=== PATIENT | female | born 1990 | race Two or more races ===

== ENCOUNTER 2017-03-02 18:14 | Emergency (ER) | payer BC ==
--- NOTE | 2017-03-02 19:52 | ER Document Report ---
ED Medical Screen (RME) - General Chief Complaint: Abdominal Pain Stated Complaint: LOWER ABDOMINAL PAIN Mode of Arrival: Wheelchair Information source: Patient Notes: 26-year-old female presents with sudden left lower quadrant abdominal pain that started tonight hours ago. Patient notes she has had 2 similar episodes in the past for which she has been evaluated in no specific results were found. Denies any fevers or chills admits nausea I have greeted and performed a rapid initial assessment of this patient. A comprehensive ED assessment and evaluation of the patient, analysis of test results and completion of the medical decision making process will be conducted by additional ED providers. PHYSICAL EXAMINATION: GENERAL: Well-appearing, well-nourished and in no acute distress. HEAD: Atraumatic, normocephalic. EYES: Pupils equal round extraocular movements intact, conjunctiva are normal. ENT: Nares patent NECK: Normal range of motion LUNGS: No respiratory distress Musculoskeletal: Normal range of motion, patient is tender in the left lower quadrant NEUROLOGICAL: Normal speech, normal gait. PSYCH: Normal mood, normal affect. SKIN: Warm, Dry, normal turgor, no rashes or lesions noted. TRAVEL OUTSIDE OF THE [place] IN LAST 30 DAYS: No - Related Data Allergies/Adverse Reactions: bee stings Allergy (Uncoded 03/02/17 19:32) Past Medical History Renal/ Medical History: Denies: Hx Peritoneal Dialysis Physical Exam - Vital signs Vitals: Temp Pulse Resp BP Pulse Ox 98.0 F 87 20 142/115 H 100 03/02/17 18:18 03/02/17 18:18 03/02/17 18:18 03/02/17 18:18 03/02/17 18:18 Course - Vital Signs Vital signs: Temp Pulse Resp BP Pulse Ox 98.0 F 87 20 142/115 H 100 03/02/17 18:18 03/02/17 18:18 03/02/17 18:18 03/02/17 18:18 03/02/17 18:18
[2017-03-02] MEDS ORDERED: KETOROLAC TROMETHAMINE 60 MG/2 ML SDV IM ONE (19:57)
[2017-03-02 20:57] LABS: ABSOLUTE BASOPHILS # (AUTO) 0.1 10^3/uL (0.0-0.2); ABSOLUTE EOSINOPHILS # (AUTO) 0.1 10^3/uL (0.0-0.6); ABSOLUTE LYMPHOCYTES (AUTO) 2.5 10^3/uL (0.5-4.7); ABSOLUTE MONOCYTES (AUTO) 0.7 10^3/uL (0.1-1.4); ABSOLUTE NEUT (AUTO) 8.6 10^3/uL (1.7-8.2); BASOPHILS % (AUTO) 0.5 % (0-2); EOSINOPHILS % (AUTO) 1.1 % (0-6); HEMATOCRIT 46.2 % (36.0-47.0); HEMOGLOBIN 15.3 g/dL (12.0-15.5); HGB HCT DIFFERENCE -0.3; LYMPHOCYTES % (AUTO) 20.8 % (13-45); MEAN CORPUSCULAR HEMOGLOBIN 29.9 pg (27.0-33.4); MEAN CORPUSCULAR HGB CONC 33.2 g/dL (32.0-36.0); MEAN CORPUSCULAR VOLUME 90 fl (80-97); MONOCYTES % (AUTO) 6.1 % (3-13); RED BLOOD COUNT 5.13 10^6/uL (3.72-5.28); RED CELL DISTRIBUTION WIDTH 12.9 % (11.5-14.0); SEGMENTED NEUTROPHILS % (AUTO) 71.5 % (42-78); WHITE BLOOD COUNT 12.1 10^3/uL (4.0-10.5)
[2017-03-02 21:16] LABS: ALANINE AMINOTRANSFERASE 25 U/L (9-52); ALBUMIN 5.1 g/dL (3.5-5.0); ALKALINE PHOSPHATASE 48 U/L (38-126); ANION GAP 16 (5-19); ASPARTATE AMINO TRANSFERASE 19 U/L (14-36); BILIRUBIN,DIRECT 0.4 mg/dL (0.0-0.4); BILIRUBIN,TOTAL 0.8 mg/dL (0.2-1.3); BLOOD UREA NITROGEN 15 mg/dL (7-20); CALCIUM 10.1 mg/dL (8.4-10.2); CARBON DIOXIDE 23 mmol/L (22-30); CHLORIDE 104 mmol/L (98-107); CREATININE RESULT 0.69 mg/dL (0.52-1.25); GLUCOSE 82 mg/dL (75-110); LIPASE 54.3 U/L (23-300); POTASSIUM 4.1 mmol/L (3.6-5.0); SODIUM 142.5 mmol/L (137-145); TOTAL PROTEIN 8.7 g/dL (6.3-8.2)
[2017-03-02 21:23] LABS: APPEARANCE,URINE CLOUDY; BILIRUBIN,URINE NEGATIVE (NEGATIVE); GLUCOSE, URINE NEGATIVE (NEGATIVE); KETONES,URINE NEGATIVE (NEGATIVE); LEUKOCYTE ESTERASE,URINE TRACE (NEGATIVE); NITRITE,URINE NEGATIVE (NEGATIVE); PROTEIN,URINE NEGATIVE (NEGATIVE); URINE SPECIFIC GRAVITY 1.023; UROBILINOGEN,URINE NEGATIVE mg/dL (<2.0)
--- NOTE | 2017-03-02 22:07 | ER Document Report ---
ED GI/ - General Chief Complaint: Abdominal Pain Stated Complaint: LOWER ABDOMINAL PAIN Time seen by provider: 22:05 Mode of Arrival: Wheelchair Information source: Patient TRAVEL OUTSIDE OF THE [place] IN LAST 30 DAYS: No - HPI Patient complains to provider of: Abdominal pain, Pelvic pain Onset: This afternoon Timing/Duration: Sudden Quality of pain: Sharp, Stabbing Severity at maximum: Severe Severity in ED: Almost gone Location: LLQ, Pelvis Vaginal bleeding (Compared to normal period): None Associated symptoms: None Exacerbated by: Denies Relieved by: Denies Similar symptoms previously: No Recently seen / treated by doctor: Yes - approximately one year ago, no diagnosis made Notes: 03/02/17 22:05 Patient is a 26-year-old female who presents to the emergency room complaining of sharp stabbing left lower quadrant/left pelvis pain that started suddenly around 4:30 PM today, she denies any nausea, vomiting or diarrhea, no dysuria or hematuria, no fever or chills, she reports a history of similar symptoms approximately one year ago, she sought medical care but was not given an official diagnosis for her pain, patient reports that her pain is almost nearly resolved now that she received a Toradol injection - Related Data Allergies/Adverse Reactions: bee stings Allergy (Uncoded 03/02/17 19:32) Past Medical History - General Information source: Patient - Social History Smoking Status: Current Some Day Smoker Family History: Reviewed & Not Pertinent Patient has suicidal ideation: No Patient has homicidal ideation: No Renal/ Medical History: Denies: Hx Peritoneal Dialysis Review of Systems - Review of Systems Constitutional: No symptoms reported EENT: No symptoms reported Cardiovascular: No symptoms reported Respiratory: No symptoms reported Gastrointestinal: See HPI Genitourinary: No symptoms reported Female Genitourinary: See HPI Musculoskeletal: No symptoms reported Skin: No symptoms reported Hematologic/Lymphatic: No symptoms reported Neurological/Psychological: No symptoms reported -: Yes All other systems reviewed and negative Physical Exam - Vital signs Vitals: Temp Pulse Resp BP Pulse Ox 98.0 F 87 20 142/115 H 100 03/02/17 18:18 03/02/17 18:18 03/02/17 18:18 03/02/17 18:18 03/02/17 18:18 Interpretation: Hypertensive - General General appearance: Appears well, Alert - HEENT Head: Normocephalic, Atraumatic Eyes: Normal Pupils: PERRL - Respiratory Respiratory status: No respiratory distress Chest status: Nontender Breath sounds: Normal Chest palpation: Normal - Cardiovascular Rhythm: Regular Heart sounds: Normal auscultation Murmur: No - Abdominal Inspection: Normal Distension: No distension Bowel sounds: Normal Tenderness: Tender - Left lower quadrant/left pelvis Organomegaly: No organomegaly - Back Back: Normal, Nontender - Extremities General upper extremity: Normal inspection, Nontender, Normal color, Normal ROM , Normal temperature General lower extremity: Normal inspection, Nontender, Normal color, Normal ROM , Normal temperature, Normal weight bearing. No: Fermin's sign - Neurological Neuro grossly intact: Yes Cognition: Normal Orientation: AAOx4 [place] Coma Scale Eye Opening: Spontaneous [place] Coma Scale Verbal: Oriented [place] Coma Scale Motor: Obeys Commands [place] Coma Scale Total: 15 Speech: Normal Motor strength normal: LUE, RUE, LLE, RLE Sensory: Normal - Psychological Associated symptoms: Normal affect, Normal mood - Skin Skin Temperature: Warm Skin Moisture: Dry Skin Color: Normal Course - Re-evaluation Re-evalutation: 03/02/17 22:38 Patient resting comfortably, continues to deny any complaints at present time, lab and imaging findings were discussed with her at bedside, symptoms are consistent with likely kidney stone, transvaginal ultrasound does not show any abnormalities, I discussed the possibility of obtaining a CT scan with patient today, however she reports that she is feeling much better and would like to go home, therefore she will be treated for a urinary tract infection and likely kidney stone, advised to follow-up with a primary care provider in 2-3 days, or return if symptoms worsen, patient acknowledges understanding and agreement with this plan - Vital Signs Vital signs: Temp Pulse Resp BP Pulse Ox 98.0 F 87 20 142/115 H 100 03/02/17 18:18 03/02/17 18:18 03/02/17 18:18 03/02/17 18:18 03/02/17 18:18 - Laboratory Result Diagrams: 03/02/17 20:11 03/02/17 20:11 Laboratory results interpreted by me: 03/02/17 03/02/17 03/02/17 20:11 20:11 20:11 WBC 12.1 H Absolute Neutrophils 8.6 H Total Protein 8.7 H Albumin 5.1 H Urine Blood SMALL H Ur Leukocyte Esterase TRACE H - Diagnostic Test Radiology reviewed: Image reviewed, Reports reviewed Discharge - Discharge Clinical Impression: Left flank pain Urinary tract infection Qualifiers: Urinary tract infection type: site unspecified Hematuria presence: without hematuria Qualified Code(s): N39.0 - Urinary tract infection, site not specified Condition: Stable Disposition: HOME, SELF-CARE Instructions: Antinausea Medication ([facility]), Urinary Tract Infection ([facility]), Oral Narcotic Medication ([facility]), Kidney Stone ([facility]) Additional Instructions: Follow up with your primary care provider in one to 2 days. Return to the emergency room immediately if symptoms worsen or any additional concerns. Prescriptions: Cephalexin Monohydrate [Keflex 500 mg Capsule] 500 mg PO BID #20 capsule Ondansetron [Zofran Odt 4 mg Tablet] 1 - 2 tab PO Q4H #10 tab.rapdis Tramadol HCl/Acetaminophen [Ultracet 37.5 mg/325 mg Tablet] 1 each PO Q6 #20 tablet Forms: Return to Work
[2017-03-02] MEDS ORDERED: HYDROCODONE/ACETAMINOPHEN 5-325 MG 6 TAB/DSPK PO PRN (22:38)
[2017-03-02] MEDS ORDERED: CEPHALEXIN 500 MG CAPSULE PO ONE (22:38)
[2017-03-02] MEDS ORDERED: ONDANSETRON ODT 4 MG TAB (6 TAB/DSPK) PO PRN (22:38)
[2017-03-02 22:59] VITALS: BP 103/67
== END 2017-03-02 22:50 | disposition home or self-care (01) ==
LOC: ER 18:14
DX: N39.0 Urinary tract infection, site not specified (principal); R10.9 Unspecified abdominal pain; R10.30 Lower abdominal pain, unspecified; R10.2 Pelvic and perineal pain; F17.200 Nicotine dependence, unspecified, uncomplicated
CPT/HCPCS: 99284; 36415; 83690; 84703; 85025; 80053; 81001; 76830; 93976; J1885

== ENCOUNTER 2017-03-28 12:13 | Emergency (ER) | payer BC, MEDICAID ==
--- NOTE | 2017-03-28 13:24 | ER Document Report ---
ED Medical Screen (RME) - General TRAVEL OUTSIDE OF THE [place] IN LAST 30 DAYS: No <AUSTYN CASTREJON - Last Filed: 03/28/17 13:27> <IVANA PIERCE - Last Filed: 03/28/17 19:00> - General Chief Complaint: Pelvic Pain Stated Complaint: ABDOMINAL PAIN, BROWN DISCHARGE Time Seen by Provider: 03/28/17 13:20 Notes: Patient says she fainted Saturday as she was entering a store. Her insurance sales assistant caught her from falling to the ground and so she sustained no injuries from the faint. Not sure why this occurred. Patient had not been ill prior to that. Saturday, she noted runny nose. Patient is approximately 6 weeks . G4, P1, A2. Yesterday, she noted leaking fluid vaginally. Says the fluid is increased today and is brown in color and she is passing some chunks of material. She is having cramping comparable to a menstrual cycle. Patient was here about 3 weeks ago and says she had an ultrasound but was not told if she was or what the findings were from her visit. Denies UTI symptoms. Denies any fever. I have reviewed this patient's previous visit here of March 02. She had a negative test and a negative pelvic ultrasound. (AUSTYN CASTREJON) - Related Data Allergies/Adverse Reactions: Penicillins Allergy (Verified 03/28/17 18:43) shellfish derived Allergy (Verified 03/28/17 18:43) bee stings Allergy (Uncoded 03/28/17 18:43) Past Medical History Renal/ Medical History: Denies: Hx Peritoneal Dialysis <AUSTYN CASTREJON - Last Filed: 03/28/17 13:27> - General Information source: Patient - Social History Cigarette use (# per day): No Chew tobacco use (# tins/day): No Frequency of alcohol use: None Drug Abuse: None Lives with: Family <IVANA PIERCE - Last Filed: 03/28/17 19:00> Review of Systems - Review of Systems Constitutional: Weakness, Other - Syncope <IVANA PIERCE - Last Filed: 03/28/17 19:00> Physical Exam - Vital signs Interpretation: Normal - General General appearance: Appears well, Alert - HEENT Head: Normocephalic, Atraumatic Eyes: Normal Pupils: PERRL - Respiratory Respiratory status: No respiratory distress Chest status: Nontender Breath sounds: Normal Chest palpation: Normal - Cardiovascular Rhythm: Regular Heart sounds: Normal auscultation Murmur: No - Abdominal Inspection: Normal Distension: No distension Bowel sounds: Normal Tenderness: Nontender Organomegaly: No organomegaly - Back Back: Normal, Nontender - Extremities General upper extremity: Normal inspection, Nontender, Normal color, Normal ROM , Normal temperature General lower extremity: Normal inspection, Nontender, Normal color, Normal ROM , Normal temperature, Normal weight bearing. No: Fermin's sign - Neurological Neuro grossly intact: Yes Cognition: Normal Orientation: AAOx4 [place] Coma Scale Eye Opening: Spontaneous [place] Coma Scale Verbal: Oriented [place] Coma Scale Motor: Obeys Commands [place] Coma Scale Total: 15 Speech: Normal Motor strength normal: LUE, RUE, LLE, RLE Sensory: Normal - Psychological Associated symptoms: Normal affect, Normal mood - Skin Skin Temperature: Warm Skin Moisture: Dry Skin Color: Normal <IVANA PIERCE - Last Filed: 03/28/17 19:00> - Vital signs Vitals: Temp Pulse Resp BP Pulse Ox 97.6 F 84 16 129/82 H 100 03/28/17 12:18 03/28/17 12:18 03/28/17 12:18 03/28/17 12:18 03/28/17 12:18 Course <AUSTYN CASTREJON - Last Filed: 03/28/17 13:27> - Laboratory Result Diagrams: 03/28/17 13:33 <IVANA PIERCE - Last Filed: 03/28/17 19:00> - Re-evaluation Re-evalutation: 03/28/17 18:43 03/28/17 18:45 This is a 26-year-old female who states that she is Rh-. In workup was ordered in the pit process however it was not completed up until this time. Ultrasound did not show an intrauterine 6 weeks and 5 days with a heart tone of 128 there is a subchorionic bleed radiology report for further information in that regard. Reviewed GC was negative negative for pyuria or UTI time the patient is pending the for potential RhoGam. 03/28/17 18:46 (IVANA PIERCE) - Vital Signs Vital signs: Temp Pulse Resp BP Pulse Ox 99.4 F 75 20 196/86 H 95 03/28/17 18:44 03/28/17 18:44 03/28/17 18:44 03/28/17 18:44 03/28/17 18:44 - Laboratory Laboratory results interpreted by me: 03/28/17 03/28/17 03/28/17 13:33 13:33 13:33 WBC 11.1 H Beta HCG, Quant 69907.00 H Urine Blood MODERATE H Doctor's Discharge <AUSTYN CASTREJON - Last Filed: 03/28/17 13:27> <IVANA PIERCE - Last Filed: 03/28/17 19:00> - Discharge Condition: Good Disposition: HOME, SELF-CARE Instructions: Threatened Miscarriage ([facility]) Additional Instructions: Threatened Miscarriage You have been evaluated for a possible miscarriage. At this time, there is no indication that a miscarriage will occur. Most women with your symptoms will go on to have a perfectly normal baby. However, careful observation will be necessary. A miscarriage occurs when the fetus is abnormal. There is no medicine or treatment for it. You should rest in bed until the symptoms have resolved. Do not douche or have sex for at least a week, or until OK'd by the doctor. Call the doctor or return for re-examination if there is an increase in bleeding or cramping, or passage of tissue Follow-up with private doctor in 1 to 2 days for final radiology readings please return to the emergency room for any change worsening condition. Follow up with private M.D. for all other routine health care needs.
[2017-03-28 13:55] LABS: ABSOLUTE EOSINOPHILS # (AUTO) 0.1 10^3/uL (0.0-0.6); ABSOLUTE LYMPHOCYTES (AUTO) 2.2 10^3/uL (0.5-4.7); ABSOLUTE NEUT (AUTO) 7.9 10^3/uL (1.7-8.2); BASOPHILS % (AUTO) 0.3 % (0-2); EOSINOPHILS % (AUTO) 0.8 % (0-6); HEMATOCRIT 41.4 % (36.0-47.0); HEMOGLOBIN 13.9 g/dL (12.0-15.5); HGB HCT DIFFERENCE 0.3; LYMPHOCYTES % (AUTO) 19.5 % (13-45); MEAN CORPUSCULAR HEMOGLOBIN 30.2 pg (27.0-33.4); MEAN CORPUSCULAR HGB CONC 33.6 g/dL (32.0-36.0); MEAN CORPUSCULAR VOLUME 90 fl (80-97); MONOCYTES % (AUTO) 8.7 % (3-13); RED CELL DISTRIBUTION WIDTH 13.1 % (11.5-14.0); SEGMENTED NEUTROPHILS % (AUTO) 70.7 % (42-78); WHITE BLOOD COUNT 11.1 10^3/uL (4.0-10.5)
[2017-03-28 14:30] LABS: APPEARANCE,URINE CLEAR; BILIRUBIN,URINE NEGATIVE (NEGATIVE); GLUCOSE, URINE NEGATIVE (NEGATIVE); KETONES,URINE NEGATIVE (NEGATIVE); LEUKOCYTE ESTERASE,URINE NEGATIVE (NEGATIVE); NITRITE,URINE NEGATIVE (NEGATIVE); PROTEIN,URINE NEGATIVE (NEGATIVE); URINE SPECIFIC GRAVITY 1.005; UROBILINOGEN,URINE NEGATIVE mg/dL (<2.0)
--- NOTE | 2017-03-28 17:14 | RADIOLOGY REPORT (SQ) ---
EXAM DESCRIPTION: U/S OB TRANSVAGINAL W/DOPPLER COMPLETED DATE/TIME: 03/28/2017 4:48 pm REASON FOR STUDY: with leaking fluid COMPARISON: None. TECHNIQUE: Transvaginal static and realtime grayscale images acquired of the pelvis. Additional sunni cted spectral and color Doppler images recorded. All images stored on PACs. bHCG: Not available. LIMITATIONS: None. FINDINGS: FETUS: Living intrauterine . EGA: 6 weeks 5 days ISABEL: 11/16/2017 FHR: 128 beats per minute. SUBCHORIONIC BLEED: There is a small subchorionic bleed measuring 10 x 5 x 5 mm. SIZE OF BLEED: 10 x 5 x 5 mm. UTERUS: 10.5 x 7.7 x 5.7 cm. No masses. CERVICAL Closed. RIGHT ADNEXA: Normal ovary with normal vascular flow. Measures 23 x 24 x 14 mm. No adnexal free fluid. No adnexal masses. LEFT ADNEXA: Normal ovary with normal vascular flow. Measures 35 x 30 x 18 mm. No adnexal free fluid. No adnexal masses. FREE FLUID: Minimal OTHER: No other significant finding. IMPRESSION: There is live intrauterine gestation 6 weeks 5 days with estimated date of delivery of . Trimester of : First - 0 to 13 weeks. TECHNICAL DOCUMENTATION: JOB ID: [id number] [employer]- All Rights Reserved
[2017-03-28 18:23] LABS: CHLAM PCR NOT DETECTED (NOT DETECT)
[2017-03-28 20:22] VITALS: BP 104/62
== END 2017-03-28 20:21 | disposition home or self-care (01) ==
LOC: ER 12:13
DX: O20.0 Threatened abortion (principal); O26.891 Other specified pregnancy related conditions, first trimester; R10.2 Pelvic and perineal pain; R55 Syncope and collapse; R09.89 Other specified symptoms and signs involving the circulatory and respiratory systems; N89.8 Other specified noninflammatory disorders of vagina; Z3A.01 Less than 8 weeks gestation of pregnancy; Z88.0 Allergy status to penicillin; Z91.013 Allergy to seafood; Z91.030 Bee allergy status
CPT/HCPCS: 36415; 76817; 81001; 84702; 85025; 86900; 86901; 87491; 87591; 93976; 99284

== ENCOUNTER → 2017-04-29 | Outpatient (CLI) | payer MEDICAID ==
--- NOTE | 2017-04-29 17:34 | RADIOLOGY REPORT (SQ) ---
EXAM DESCRIPTION: U/S [id number] TRNABD 1GES W/ODOP COMPLETED DATE/TIME: 04/29/2017 4:24 pm REASON FOR STUDY: ENCOUNTER FOR SUPERVISON OF OTHER NORMAL , FIRST TRIMESTER Z34.[address] FOR SUPRVSN OF NORMAL , FIRST TRIM COMPARISON: None. TECHNIQUE: Transabdominal static and realtime grayscale images acquired of the pelvis. Additional se lected spectral and color Doppler images recorded. All images stored on PACs. bHCG: Not available, last menses 02/10/2017 LIMITATIONS: None. FINDINGS: FETUS: Living intrauterine . EGA: 12 weeks 0 days ISABEL: 11/11/2017 FHR: 173 beats per minute. SUBCHORIONIC BLEED: No SIZE OF BLEED: Not applicable. UTERUS: No masses. No anomalies. Uterus is 11.5 x 9.7 x 8 cm in size CERVICAL LENGTH: 3.3 cm Closed. RIGHT ADNEXA: Not visualized LEFT ADNEXA: Normal ovary with normal vascular flow. Left ovary 2.8 x 1.8 x 1.9 cm in size No adnexal free fluid. No adnexal masses. FREE FLUID: None. OTHER: No other significant finding. IMPRESSION: LIVING INTRAUTERINE . EGA 12 weeks 0 days Trimester of : First - 0 to 13 weeks. TECHNICAL DOCUMENTATION: JOB ID: [id number] [employer]- All Rights Reserved
== END ==
LOC: RAD 15:36
PROVIDERS: ATTEND Nurse Practitioner Women's Health
DX: Z34.81 Encounter for supervision of other normal pregnancy, first trimester (principal)
CPT/HCPCS: 76801

== ENCOUNTER 2017-09-02 15:04 | Outpatient (CLI) | payer MEDICAID ==
[2017-09-02 16:04] LABS: URINE BARBITURATES SCREEN NEGATIVE; URINE METHADONE SCREEN NEGATIVE; URINE OPIATES LOW NEGATIVE; URINE PHENCYCLIDINE SCREEN NEGATIVE
[2017-09-02 16:49] LABS: APPEARANCE,URINE SLIGHTLY-CLOUDY; BILIRUBIN,URINE NEGATIVE (NEGATIVE); GLUCOSE, URINE NEGATIVE (NEGATIVE); KETONES,URINE NEGATIVE (NEGATIVE); LEUKOCYTE ESTERASE,URINE MODERATE (NEGATIVE); NITRITE,URINE NEGATIVE (NEGATIVE); PROTEIN,URINE NEGATIVE (NEGATIVE); URINE SPECIFIC GRAVITY 1.011
[2017-09-02] MEDS ORDERED: LIDOCAINE 1% INJ-PF (10 MG/ML) 30 ML SDV INJ ONE (17:00)
[2017-09-02] MEDS ORDERED: CEFTRIAXONE INJ 1000 MG VIAL ONE (17:07)
[2017-09-02] MEDS ORDERED: LIDOCAINE 1% INJ-PF (10 MG/ML) 30 ML SDV ONE (17:08)
[2017-09-02] MEDS ORDERED: CEFTRIAXONE INJ 1000 MG VIAL IM ONE (17:30)
[2017-09-02] MEDS ORDERED: LIDOCAINE HCL 1% INJ (FOR 1 GM VIAL) INJ ONE (17:30)
== END 2017-09-02 17:25 | disposition home or self-care (01) ==
LOC: LC 15:04
PROVIDERS: ATTEND Obstetrics & Gynecology
PROC: 4A1HXCZ Monitoring of Products of Conception, Cardiac Rate, External Approach (ICD-10-PCS; principal; 2017-09-02)
DX: O23.43 Unspecified infection of urinary tract in pregnancy, third trimester (principal); Z3A.29 29 weeks gestation of pregnancy
CPT/HCPCS: 87086; 87088; 81001; 87186; 80307; 59899; J3490; J0696

== ENCOUNTER 2017-10-27 05:28 | Outpatient (CLI) | payer MEDICAID ==
[2017-10-27 06:17] LABS: APPEARANCE,URINE SLIGHTLY-CLOUDY; BILIRUBIN,URINE NEGATIVE (NEGATIVE); GLUCOSE, URINE NEGATIVE (NEGATIVE); KETONES,URINE NEGATIVE (NEGATIVE); LEUKOCYTE ESTERASE,URINE NEGATIVE (NEGATIVE); NITRITE,URINE NEGATIVE (NEGATIVE); PROTEIN,URINE NEGATIVE (NEGATIVE); URINE SPECIFIC GRAVITY 1.005; UROBILINOGEN,URINE NEGATIVE mg/dL (<2.0)
[2017-10-27 06:36] LABS: URINE BARBITURATES SCREEN NEGATIVE; URINE METHADONE SCREEN NEGATIVE; URINE OPIATES LOW NEGATIVE; URINE PHENCYCLIDINE SCREEN NEGATIVE
--- NOTE | 2017-10-27 08:24 | Non Stress Test Report ---
Non Stress Test Datetime Report Generated by CPN: 10/27/2017 08:23 DEMOGRAPHIC EGA NST: 37.1 INDICATION Indication for Study: Ordered by Provider MONITORING Monitor Explained: Monitor Explained; Test Explained; Patient Verbalized Understanding Time on Monitor: 10/27/2017 05:40 Time off Monitor: 10/27/2017 08:21 NST Duration: 161 NST INTERVENTIONS NST Interventions: PO Hydration; Reposition Patient Physician Notified NST: Dr. Corbin BABY A: [id number] BABY A Movement : Present Contraction Frequency : 1-6 FHR Baseline : 135 Accelerations : 15X15 Decelerations : Variable Variability : Moderate 6-25bpm NST Review: Meets Criteria for Reactive NST NST Review and Verified By : Shannon Jeong RN NST Results: Reactive NST COMMENTS NST Comments: Reactive tracing after variable. Pt repostioned from back to side. NST REPORT Report Trigger: Send Report
== END 2017-10-27 08:27 | disposition home or self-care (01) ==
LOC: LC 05:28
PROVIDERS: ATTEND Obstetrics & Gynecology
PROC: 4A1HXCZ Monitoring of Products of Conception, Cardiac Rate, External Approach (ICD-10-PCS; principal; 2017-10-27)
DX: O47.1 False labor at or after 37 completed weeks of gestation (principal); Z3A.37 37 weeks gestation of pregnancy
CPT/HCPCS: 59025; 80307; 81005

== ENCOUNTER 2017-10-31 21:04 | Outpatient (CLI) | payer MEDICAID ==
[2017-10-31 22:30] LABS: AMORPHOUS SEDIMENT,URINE TRACE /HPF; APPEARANCE,URINE CLOUDY; BILIRUBIN,URINE NEGATIVE (NEGATIVE); COLOR,URINE YELLOW; GLUCOSE, URINE NEGATIVE (NEGATIVE); KETONES,URINE NEGATIVE (NEGATIVE); LEUKOCYTE ESTERASE,URINE NEGATIVE (NEGATIVE); NITRITE,URINE NEGATIVE (NEGATIVE); PROTEIN,URINE NEGATIVE (NEGATIVE); URINE SPECIFIC GRAVITY 1.014
[2017-10-31 22:39] LABS: URINE AMPHETAMINES SCREEN NEGATIVE; URINE BARBITURATES SCREEN NEGATIVE; URINE BENZODIAZEPINES SCREEN NEGATIVE; URINE COCAINE SCREEN NEGATIVE; URINE MARIJUANA (THC) SCREEN NEGATIVE; URINE METHADONE SCREEN NEGATIVE; URINE PHENCYCLIDINE SCREEN NEGATIVE
== END 2017-10-31 22:45 | disposition home or self-care (01) ==
LOC: LC 21:04
PROVIDERS: ATTEND Obstetrics & Gynecology
PROC: 4A1HXCZ Monitoring of Products of Conception, Cardiac Rate, External Approach (ICD-10-PCS; principal; 2017-10-31)
DX: Z34.93 Encounter for supervision of normal pregnancy, unspecified, third trimester (principal)
CPT/HCPCS: 59025; 80307; 81001

== ENCOUNTER 2017-11-18 22:52 | Inpatient (IN) | payer MEDICAID ==
--- NOTE | 2017-11-18 22:58 | Non Stress Test Report ---
Non Stress Test Datetime Report Generated by CPN: 11/18/2017 22:57 DEMOGRAPHIC Test Number: 2 EGA NST: 37.5 INDICATION Indication for Study: Other Indication for Study (NST) Other: ctx-labor check MONITORING Monitor Explained: Monitor Explained; Test Explained; Patient Verbalized Understanding Time on Monitor: 10/31/2017 21:20 Time off Monitor: 10/31/2017 22:15 NST Duration: 55 NST INTERVENTIONS NST Interventions: PO Hydration; Reposition Patient Physician Notified NST: Dr. Corbin BABY A: [id number] BABY A Movement : Present Contraction Frequency : X2 FHR Baseline : 135 Accelerations : 15X15 Decelerations : None Variability : Moderate 6-25bpm NST Review: Meets Criteria for Reactive NST NST Review and Verified By : CECILIA Gresham Results: Reactive NST REPORT Report Trigger: Send Report
[2017-11-18 23:40] LABS: BILIRUBIN,URINE NEGATIVE (NEGATIVE); GLUCOSE, URINE NEGATIVE (NEGATIVE); KETONES,URINE NEGATIVE (NEGATIVE); LEUKOCYTE ESTERASE,URINE LARGE (NEGATIVE); NITRITE,URINE NEGATIVE (NEGATIVE); PROTEIN,URINE NEGATIVE (NEGATIVE)
[2017-11-18 23:42] LABS: APPEARANCE,URINE CLEAR; COLOR,URINE LIGHT YELLOW
[2017-11-18] MEDS ORDERED: RINGERS SOLUTION,LACTATED 1,000 ML IV PRN (23:54)
[2017-11-18] MEDS ORDERED: RINGERS SOLUTION,LACTATED 1,000 ML IV ONE (23:54)
[2017-11-18 23:57] LABS: URINE AMPHETAMINES SCREEN NEGATIVE; URINE BARBITURATES SCREEN NEGATIVE; URINE BENZODIAZEPINES SCREEN NEGATIVE; URINE COCAINE SCREEN NEGATIVE; URINE MARIJUANA (THC) SCREEN NEGATIVE; URINE METHADONE SCREEN NEGATIVE; URINE PHENCYCLIDINE SCREEN NEGATIVE
[2017-11-19] MEDS ORDERED: PROMETHAZINE HCL INJ 25 MG/1 ML VIAL ONE (00:08)
[2017-11-19] MEDS ORDERED: NALBUPHINE HCL INJ 10 MG/1 ML AMPULE ONE (00:08)
[2017-11-19] MEDS ORDERED: DILTIAZEM HCL INJ 25 MG/5 ML VIAL IV ONE (00:28)
[2017-11-19 00:31] LABS: ABSOLUTE EOSINOPHILS # (AUTO) 0.1 10^3/uL (0.0-0.6); ABSOLUTE LYMPHOCYTES (AUTO) 1.6 10^3/uL (0.5-4.7); ABSOLUTE MONOCYTES (AUTO) 1.5 10^3/uL (0.1-1.4); BASOPHILS % (AUTO) 0.2 % (0-2); EOSINOPHILS % (AUTO) 0.4 % (0-6); HEMATOCRIT 31.6 % (36.0-47.0); HEMOGLOBIN 10.3 g/dL (12.0-15.5); LYMPHOCYTES % (AUTO) 10.6 % (13-45); MEAN CORPUSCULAR HEMOGLOBIN 24.8 pg (27.0-33.4); MEAN CORPUSCULAR HGB CONC 32.4 g/dL (32.0-36.0); MEAN CORPUSCULAR VOLUME 77 fl (80-97); MONOCYTES % (AUTO) 9.6 % (3-13); PLATELET COUNT 239 10^3/uL (150-450); RED BLOOD COUNT 4.13 10^6/uL (3.72-5.28); RED CELL DISTRIBUTION WIDTH 16.5 % (11.5-14.0); SEGMENTED NEUTROPHILS % (AUTO) 79.2 % (42-78); TOTAL CELLS COUNTED % (AUTO) 100 %; WHITE BLOOD COUNT 15.2 10^3/uL (4.0-10.5)
[2017-11-19] MEDS ORDERED: ADENOSINE INJ/PF 6 MG/2 ML SDV IV ONE ×2 (00:40→00:47)
[2017-11-19 00:41] LABS: FIBRINOGEN 531 mg/dL (209-497); INTERNATIONAL RATION (INR) 0.96; PARTIAL THROMBOPLASTIN TIME 29.9 SEC (23.5-35.8); PROTHROMBIN TIME 13.5 SEC (11.4-15.4)
[2017-11-19] MEDS ORDERED: RINGERS SOLUTION,LACTATED 1,000 ML IV ONE (00:55)
[2017-11-19] MEDS ORDERED: METOPROLOL TARTRATE PF/INJ 5 MG/5 ML SDV IV ONE ×2 (00:55→00:56)
[2017-11-19] MEDS ORDERED: MISOPROSTOL 0.2 MG TABLET ONE (01:07)
[2017-11-19] MEDS ORDERED: LIDOCAINE 1% INJ-PF (10 MG/ML) 30 ML SDV ONE (01:07)
[2017-11-19] MEDS ORDERED: OXYTOCIN/NORMAL SALINE 20 UNIT/1,000 ML RTUINJ ONE (01:07)
[2017-11-19] MEDS ORDERED: DILTIAZEM HCL/D5W 125 MG/125 ML RTUINJ IV PRN (01:08)
[2017-11-19] MEDS ORDERED: ADENOSINE INJ 60 MG/20 ML VIAL IV ONE (01:33)
[2017-11-19 01:48] LABS: ANION GAP 11 (5-19); BLOOD UREA NITROGEN 7 mg/dL (7-20); CARBON DIOXIDE 21 mmol/L (22-30); CHLORIDE 108 mmol/L (98-107); GLUCOSE 92 mg/dL (75-110); MAGNESIUM 1.6 mg/dL (1.6-2.3); POTASSIUM 3.7 mmol/L (3.6-5.0); SODIUM 140.2 mmol/L (137-145)
[2017-11-19] MEDS ORDERED: MAGNESIUM SULFATE/D5W 1 GM/100 ML RTUPB IV ONE (02:11)
--- NOTE | 2017-11-19 02:23 | PDOC CONSULTATION ---
Consultation Consult Date: 11/19/17 Attending physician:: QIANA PECK Consult reason:: Tachycardia History of Present Illness Admission Date/PCP: 11/18/17 23:52 CHARLIE BATEMAN MD History of Present Illness: GREGORIO JORDAN is a 27 year old female with no past medical history of palpitations or heart problems who presents to the hospital with syncope, palpitations, and labor pains. Patient is found to have tachycardia. I was called by the OB on-call at approximately 0022 and asked what to do for a heart rate of 220. At this time he presented to the floor. Patient denies any chest pain but admits to palpitations and feelings of dizziness. Patient is having intermittent contractions. EKG was obtained and patient was found to be a narrow complex tachycardia. Past Medical History Medical History: None Past Surgical History Past Surgical History: Reports: None Social History Smoking Status: Never Smoker Frequency of Alcohol Use: None Hx Recreational Drug Use: No Hx Prescription Drug Abuse: No - Advance Directive Resuscitation Status: Full Code Family History Family History: Hypertension Parental Family History Reviewed: Yes Children Family History Reviewed: NA Sibling(s) Family History Reviewed.: No Medication/Allergy Home Medications: Vit/Iron Fum/Folic AC [ Tablet] 1 tab PO DAILY 09/02/17 Allergies/Adverse Reactions: bee stings Allergy (Severe, Uncoded 10/27/17 05:37) Review of Systems Constitutional: ABSENT: chills, fever(s), headache(s), weight gain, weight loss Eyes: ABSENT: visual disturbances Ears: ABSENT: hearing changes Cardiovascular: PRESENT: palpitations Respiratory: ABSENT: cough, hemoptysis Gastrointestinal: PRESENT: abdominal pain Genitourinary: ABSENT: dysuria, hematuria Musculoskeletal: ABSENT: joint swelling Integumentary: ABSENT: rash, wounds Neurological: PRESENT: syncope Psychiatric: ABSENT: anxiety, depression, homidical ideation, suicidal ideation Endocrine: ABSENT: cold intolerance, heat intolerance, polydipsia, polyuria Hematologic/Lymphatic: ABSENT: easy bleeding, easy bruising Physical Exam Vital Signs: Intake & Output 11/17/17 11/18/17 11/19/17 06:59 06:59 06:59 Weight 73 kg General appearance: PRESENT: mild distress, well-developed, well-nourished Head exam: PRESENT: atraumatic, normocephalic Eye exam: PRESENT: conjunctiva pink, EOMI, PERRLA. ABSENT: scleral icterus Ear exam: PRESENT: normal external ear exam Mouth exam: PRESENT: moist, tongue midline Neck exam: ABSENT: JVD, lymphadenopathy, thyromegaly, tracheal deviation Respiratory exam: PRESENT: clear to auscultation alex, tachypnea, unlabored. ABSENT: accessory muscle use, rales, rhonchi, wheezes Cardiovascular exam: PRESENT: RRR, +S1, +S2, tachycardia. ABSENT: diastolic murmur, gallop, rubs, systolic murmur Pulses: PRESENT: normal carotid pulses, normal dorsalis pedis pul Vascular exam: PRESENT: normal capillary refill GI/Abdominal exam: PRESENT: soft, other - Gravid. ABSENT: guarding, mass, organolmegaly, rebound, tenderness Rectal exam: PRESENT: deferred Extremities exam: PRESENT: full ROM. ABSENT: calf tenderness, clubbing, pedal edema Neurological exam: PRESENT: alert, awake, oriented to person, oriented to place , oriented to time, oriented to situation, CN II-XII grossly intact. ABSENT: motor sensory deficit Psychiatric exam: PRESENT: appropriate affect, normal mood. ABSENT: homicidal ideation, suicidal ideation Skin exam: PRESENT: dry, intact, warm. ABSENT: cyanosis, rash Results Laboratory Results: 11/19/17 00:14 11/18/17 11/19/17 23:05 00:14 WBC 15.2 H RBC 4.13 Hgb 10.3 L Hct 31.6 L MCV 77 L MCH 24.8 L MCHC 32.4 RDW 16.5 H Plt Count 239 Seg Neutrophils % 79.2 H Lymphocytes % 10.6 L Monocytes % 9.6 Eosinophils % 0.4 Basophils % 0.2 Absolute Neutrophils 12.0 H Absolute Lymphocytes 1.6 Absolute Monocytes 1.5 H Absolute Eosinophils 0.1 Absolute Basophils 0.0 Urine Color LIGHT YELLOW Urine Appearance CLEAR Urine pH 7.0 Ur Specific [place] 1.010 Urine Protein NEGATIVE Urine Glucose (UA) NEGATIVE Urine Ketones NEGATIVE Urine Blood MODERATE H Urine Nitrite NEGATIVE Ur Leukocyte Esterase LARGE H 11/19/17 00:14 Troponin I < 0.012 Assessment & Plan - Diagnosis (1) AVNRT (AV nando re-entry tachycardia) Is this a current diagnosis for this admission?: Yes Plan: 15 EKG reveals SVT 0017 Attempt made carotid massage 001 Ice application to face 0020 Discussed with Cardiology 0030 Cardizem 10mg IV maternal HR from 220 to 180, FHR 140 0043 LR bolus 0052 Adenosine 6mg IV x1- maternal HR from 197 to 143, FHR 145 0053 Second IV started 0058 Metoprolol IV 5mg maternal HR from 143 to 113, FHR 140 Cardizem ggt started at 2.5mg /hr. ICU nurse with telemeetry monitor to titrate. OB and cardiology in agreement. Per cardiology recommendations, patient is to take cardizedm 30mg po q8 after delivery. Patient has been advised NOT to breastfeed at this time due to the salt cutter of these medications. Cardiology and OB in agreement with current care. Defer further management to cardiology. Check electrolytes and replete if needed. (2) Qualifiers: Weeks of gestation: 40 weeks Qualified Code(s): Z3A.40 - 40 weeks gestation of Is this a current diagnosis for this admission?: Yes Plan: Defer all expectant management to the [facility] team. - Time Disposition: Total time spent with patient including patient education, physical examination , discussion with consultants, and formulation of plan was 85 minutes.
[2017-11-19] MEDS ORDERED: FENTANYL/BUPIVACAINE/NS/PF 200 MCG/100 ML RTUINJ EPI ONE (03:30)
[2017-11-19] MEDS ORDERED: EPHEDRINE SULFATE INJ 50 MG/1 ML AMPULE ONE (03:30)
[2017-11-19] MEDS ORDERED: BUPIVACAINE HCL 0.25 % INJ/PF (2.5 MG/1 ML) 30 ML VIAL ONE (03:30)
[2017-11-19] MEDS ORDERED: DILTIAZEM HCL 30 MG TABLET PO SCH (06:00)
[2017-11-19] MEDS ORDERED: DIBUCAINE 1% OINTMENT 28 GM TP PRN (06:52)
[2017-11-19] MEDS ORDERED: BENZOCAINE/MENTHOL AEROSOL SPRAY 56 ML TOP PRN (06:52)
[2017-11-19] MEDS ORDERED: ACETAMINOPHEN WITH CODEINE #3 TABLET PO PRN (06:52)
[2017-11-19] MEDS ORDERED: DIPH/PERTUSS(ACELL)/TETANUS VAC/PF 0.5 ML SYR (>=10YO) IM PRN (06:52)
[2017-11-19] MEDS ORDERED: ZOLPIDEM TARTRATE 5 MG TABLET PO PRN (06:52)
[2017-11-19] MEDS ORDERED: MEASLES,MUMPS&RUBELLA VACC/PF 0.5 ML VIAL SUBCUT PRN (06:52)
[2017-11-19] MEDS ORDERED: OXYTOCIN/NORMAL SALINE 20 UNIT/1,000 ML RTUINJ IV PRN (06:52)
[2017-11-19] MEDS ORDERED: DILTIAZEM HCL 30 MG TABLET PO ONE (08:00)
--- NOTE | 2017-11-19 08:20 | Admission Physical ---
Datetime Report Generated by CPN: 11/19/2017 08:20 CURRENT ADMISSION Chief Complaint: Uterine Contractions; Other Chief Complaint Other: palpatations Indication for Induction: Other Indication for Induction: Term, Intrauterine ; Induction of Labor; Medical Complication Indication for Induction- Other: maternal tachycardia Admit Plan: Admit to Unit; Initiate Labor Induction Protocol ALLERGIES Medication Allergies: No Latex: No Latex Allergies Food Allergies: none Environmental Allergies: BEE STINGS-ANAPHYLACTIC OBSTETRICAL HISTORY EDC: 11/16/2017 00:00 : 4 Para: 1 Term: 1 : 0 SAB: 2 IAB: 0 Ectopic: 0 Livin Cesareans: 0 VBACs: 0 Multiple Births: 0 Gestational Diabetes: No Rh Sensitization: No Incompetent Cervix: No SERGEY: No Infertility: No ART Treatment: No Uterine Anomaly: No IUGR: No Hx Previous C/S: No Macrosomia: No Hx Loss/Stillborn: No PIH: No Hx : No Placenta Previa/Abruption: No Depression/PP Depression: No PTL/PROM: No Post Hemorrhage: No Current Procedures: Ultrasound; NST Obstetrical History Comments: G1: SAB 2006 G2: Male 2008 G3: SAB twins 2012 G4: Current SEE RECORDS Alcohol: No Marijuana : No Cocaine: No Other Illicit Drugs: No Cigarettes: Former Smoker. 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, CIN1, HPV, mild dysplasia, colp performed, frequent UTI's INFECTIOUS HISTORY Gonorrhea: No Genital Herpes: No Chlamydia: No Tuberculosis: No Syphilis: No Hepatitis: No HIV/AIDS Exposure: No Rash or Viral Illness: No HPV: No PHYSICAL EXAM General: Normal HEENT: Normal Neurologic: Normal Thyroid: Normal Heart: Abnormal Lungs: Normal Breast: Normal Back: Normal Abdomen: Normal Genitourinary Exam: Normal Extremities: Normal DTRs: Normal Pelvic Type: Adequate Vital Signs: Reviewed Details Vital Signs: maternal tachycardia in 190s-200s VAGINAL EXAM Dilatation: 3 Effacement: 50 Station: -1 MEMBRANES Pooling: Negative Membranes: Intact FETUS A EGA: 40.3 Monitoring: External US FHR- Baseline: 150 Variability: Moderate 6-25bpm Accelerations: 15X15 Decelerations: None FHR Category: Category I Estimated Weight (gm): 3500 Presentation: Vertex Admit Comment: hospitalist Dr. Shaffer consulted due to maternal tachycardia in light of normal BP and PO2 and no other symptoms. Dr. Shaffer and Dr. Esposito presented and evaluated patient with diagnosis of re-entry tachycardia that responded to Adenosine and Cardiziem. Will continue with plan for induction in light of patients medical complication. Per hospitalist recs will continue on cardiziem drip while laboring. Metoprolol 5 mg given x [address] Esposito recommends Cardiziem 30 mg TID PO to be initiated after delivery achieved. PLANS FOR LABOR AND DELIVERY Labor and Delivery: None Pain Management: Epidural Feeding Preference: Breast Benefit of Breast Feed Discussed: Yes Circumcision: No INFORMED CONSENT Signature: with User ID: [email or web address]
[2017-11-19 09:05] LABS: ANION GAP 10 (5-19); BLOOD UREA NITROGEN 8 mg/dL (7-20); CALCIUM 8.7 mg/dL (8.4-10.2); CARBON DIOXIDE 19 mmol/L (22-30); CHLORIDE 108 mmol/L (98-107); GLUCOSE 95 mg/dL (75-110); MAGNESIUM 1.6 mg/dL (1.6-2.3); POTASSIUM 3.8 mmol/L (3.6-5.0); SODIUM 136.8 mmol/L (137-145)
--- NOTE | 2017-11-19 09:49 | EKG REPORT ---
SEVERITY:- ABNORMAL ECG - SINUS TACHYCARDIA BORDERLINE RIGHT AXIS DEVIATION BORDERLINE ST DEPRESSION, DIFFUSE LEADS ABNORMAL T, CONSIDER ISCHEMIA, INFERIOR LEADS : Confirmed by: Blank Knight 19-Nov-2017 09:48:39
--- NOTE | 2017-11-19 09:49 | EKG REPORT ---
SEVERITY:- OTHERWISE NORMAL ECG - SINUS TACHYCARDIA : Confirmed by: Blank Knight 19-Nov-2017 09:48:29
--- NOTE | 2017-11-19 09:50 | EKG REPORT ---
SEVERITY:- ABNORMAL ECG - SUPRAVENTRICULAR TACHYCARDIA REPOLARIZATION ABNORMALITY, PROB RATE RELATED : Confirmed by: Blank Knight 19-Nov-2017 09:48:55
[2017-11-19] MEDS ORDERED: (PENDING PHARMACY ID) (Prenatal Vit/Iron Fum/Folic Ac [Prenatal Tablet] 1 TAB) PO SCH (10:00)
[2017-11-19] MEDS ORDERED: PRENATAL VITAMIN W DHA CAPSULE PO SCH (10:00)
[2017-11-19] MEDS: ACETAMINOPHEN WITH CODEINE #3 TABLET PO PRN (11:08)
[2017-11-19] MEDS: DOCUSATE SODIUM 100 MG CAPSULE PO SCH ×2 (11:08→17:24)
[2017-11-19] MEDS: PRENATAL VITAMIN W DHA CAPSULE PO SCH (11:09)
[2017-11-19] MEDS: FERROUS SULFATE 325 MG TABLET PO SCH ×2 (11:09→17:24)
[2017-11-19] MEDS: SENNOSIDES/DOCUSATE 8.6-50 MG 1 EACH TABLET PO SCH (11:09)
--- NOTE | 2017-11-19 11:39 | PDOC PROGRESS REPORT ---
Subjective Progress Note for:: 11/19/17 Subjective:: The patient is seen on morning rounds. She is found sitting upright in bed eating her breakfast. She reports feeling very fatigued this morning after her labor/deliver early this morning. She denies chest pain, palpitations, dyspnea , orthopnea. She denies a current sensation of dizziness, or lightheadedness, nausea or vomiting. She has no new questions or concerns at this time. Reason For Visit: Physical Exam Vital Signs: Temp Pulse Resp BP Pulse Ox 98.3 F 91 19 115/56 L 98 11/19/17 08:30 11/19/17 08:30 11/19/17 10:09 11/19/17 10:09 11/19/17 10:09 Intake & Output 11/18/17 11/19/17 11/20/17 06:59 06:59 06:59 Weight 73 kg 70.1 kg General appearance: PRESENT: no acute distress, well-developed, well-nourished Head exam: PRESENT: atraumatic, normocephalic Eye exam: PRESENT: conjunctiva pink, EOMI, PERRLA. ABSENT: scleral icterus Ear exam: PRESENT: normal external ear exam Mouth exam: PRESENT: moist, tongue midline Neck exam: ABSENT: carotid bruit, JVD, lymphadenopathy, thyromegaly Respiratory exam: PRESENT: clear to auscultation alex, symmetrical, unlabored. ABSENT: rales, rhonchi, wheezes Cardiovascular exam: PRESENT: RRR, +S1, +S2, tachycardia. ABSENT: diastolic murmur, rubs, systolic murmur Pulses: PRESENT: normal dorsalis pedis pul Vascular exam: PRESENT: normal capillary refill GI/Abdominal exam: PRESENT: normal bowel sounds, soft, tenderness - generalized. ABSENT: distended, guarding, mass, organolmegaly, rebound Rectal exam: PRESENT: deferred Extremities exam: PRESENT: full ROM. ABSENT: calf tenderness, clubbing, pedal edema Neurological exam: PRESENT: alert, awake, oriented to person, oriented to place , oriented to time, oriented to situation, CN II-XII grossly intact. ABSENT: motor sensory deficit Psychiatric exam: PRESENT: appropriate affect, normal mood. ABSENT: homicidal ideation, suicidal ideation Skin exam: PRESENT: dry, intact, warm. ABSENT: cyanosis, rash Results Laboratory Results: 11/19/17 00:14 11/19/17 08:36 11/18/17 11/19/17 11/19/17 23:05 00:14 00:14 WBC 15.2 H RBC 4.13 Hgb 10.3 L Hct 31.6 L MCV 77 L MCH 24.8 L MCHC 32.4 RDW 16.5 H Plt Count 239 Seg Neutrophils % 79.2 H Lymphocytes % 10.6 L Monocytes % 9.6 Eosinophils % 0.4 Basophils % 0.2 Absolute Neutrophils 12.0 H Absolute Lymphocytes 1.6 Absolute Monocytes 1.5 H Absolute Eosinophils 0.1 Absolute Basophils 0.0 Sodium Potassium Chloride Carbon Dioxide Anion Gap BUN Creatinine Est GFR ( Amer) Est GFR (Non-Af Amer) Glucose Calcium Magnesium Urine Color LIGHT YELLOW Urine Appearance CLEAR Urine pH 7.0 Ur Specific Two Dot 1.010 Urine Protein NEGATIVE Urine Glucose (UA) NEGATIVE Urine Ketones NEGATIVE Urine Blood MODERATE H Urine Nitrite NEGATIVE Ur Leukocyte Esterase LARGE H Blood Type O POSITIVE Antibody Screen NEGATIVE 11/19/17 11/19/17 00:14 08:36 WBC RBC Hgb Hct MCV MCH MCHC RDW Plt Count Seg Neutrophils % Lymphocytes % Monocytes % Eosinophils % Basophils % Absolute Neutrophils Absolute Lymphocytes Absolute Monocytes Absolute Eosinophils Absolute Basophils Sodium 140.2 136.8 L Potassium 3.7 3.8 Chloride 108 H 108 H Carbon Dioxide 21 L 19 L Anion Gap 11 10 BUN 7 8 Creatinine 0.71 0.54 Est GFR ( Amer) > 60 > 60 Est GFR (Non-Af Amer) > 60 > 60 Glucose 92 95 Calcium 9.0 8.7 Magnesium 1.6 1.6 Urine Color Urine Appearance Urine pH Ur Specific Two Dot Urine Protein Urine Glucose (UA) Urine Ketones Urine Blood Urine Nitrite Ur Leukocyte Esterase Blood Type Antibody Screen 11/19/17 00:14 Troponin I < 0.012 Assessment & Plan - Diagnosis (1) AVNRT (AV nando re-entry tachycardia) Is this a current diagnosis for this admission?: Yes Plan: Resolved following administration of Cardizem, metoprolol, and adenosine. The patient initially had a heart rate in the 220s with an associated syncopal episode. She was briefly placed on a Cardizem drip. Will transition to p.o. diltiazem now that patient is . Appreciate Cardiology's consultation and recommendations. Follow-up chemistry reveals only mild hyponatremia, likely secondary to fluid volume depletion following labor and vaginal delivery last night. We will continue to monitor. (2) Hyponatremia Is this a current diagnosis for this admission?: Yes Plan: mild hyponatremia, likely secondary to fluid volume depletion following labor and vaginal delivery last night. We will continue to monitor. (3) care following vaginal delivery Is this a current diagnosis for this admission?: Yes Plan: Will defer management to the QC ANALYST team. - Time Time Spent with patient: 15-24 minutes Medications reviewed and adjusted accordingly: Yes Anticipated discharge: Home Within: within 48 hours
--- NOTE | 2017-11-19 13:45 | Delivery Summary ---
Del Sum A-C Datetime Report Generated by CPN: 11/19/2017 13:45 DELIVERY PERSONNEL DELIVERY PERSONNEL: [id number] Delivery Doctor:: Desiree Monroy MD Labor and Delivery Nurse:: Jolene Esquivel RNsurveillance specialist Nurse:: Veronica Christensen RN Nursery Nurse:: Suzette Jj RN Adjunct Physical Education Instructor/DINKEY DISPATCHER: Nicolette Semar, MARINE PILOT MATERNAL INFORMATION Delivery Anesthesia: Epidural Medications After Delivery: Pitocin Drip 20 Units/1000ml NSS Estimated Blood Loss (ml): 200 Maternal Complications: Other Other Maternal Complications: maternal tachycardia-on Cardizem drip and received Adenosine. LABOR SUMMARY EDC: 11/16/2017 00:00 No. Babies in Womb: 1 Attempted: No Labor Anesthesia: Epidural LABOR INFORMATION Reason for Induction: Other Reason for Induction- Other: maternal tachycardia Onset of Labor: 11/19/2017 02:37 Complete Dilatation: 11/19/2017 05:26 Oxytocin: Induction Group B Beta Strep: negative Antibiotics # of Doses: 0 Steroids Given: None Reason Steroids Not Administered: Not Applicable MEMBRANES Membranes Rupture Method: Artificial Rupture of Membranes: 11/19/2017 05:41 Length of Rupture (hr): 0.73 Amniotic Fluid Color: Clear Amniotic Fluid Amount: Small Amniotic Fluid Odor: Normal STAGES OF LABOR Stage 1 hr: 2 Stage 1 min: 49 Stage 2 hr: 0 Stage 2 min: 59 Stage 3 hr: 0 Stage 3 min: 3 Total Time in Labor hr: 3 Total Time in Labor min: 51 VAGINAL DELIVERY Episiotomy: None Laceration #1: None Laceration Extension #1: N/A Laceration Repair: Not Applicable Sponge Count Correct: N/A Sharps Count Correct: N/A CSECTION DELIVERY Primary Indication: N/A CSection Incidence: N/A Labor: N/A Elective: N/A CSection Incision: N/A BABY A INFORMATION Delivery Date/Time: 11/19/2017 06:25 Method of Delivery: Vaginal Born in Route : No : N/A Forceps: N/A Vacuum Extraction: N/A Shoulder Dystocia : No PRESENTATION/POSITION BABY A Presentation: Cephalic Cephalic Presentation: Vertex Vertex Position: Right Occipital Anterior Breech Presentation: N/A PLACENTA INFORMATION BABY A Placenta Delivery Time : 11/19/2017 06:28 Placenta Method of Delivery: Spontaneous Placenta Status: Delivered SCORES BABY A Heart Rate 1 min: >100 bpm Resp Effort 1 min: Good Cry Reflex Irritability 1 min: Cough or Sneeze or Pulls Away Muscle Tone 1 min: Active Motion Color 1 min: Blue/Pale Resuscitation Effort 1 min: Tactile Stimulation SCORE 1 MIN: 8 Heart Rate 5 min: >100 bpm Resp Effort 5 min: Good Cry Reflex Irritability 5 min: Cough or Sneeze or Pulls Away Muscle Tone 5 min: Active Motion Color 5 min: Body Secretary, Extremities Blue Resuscitation Effort 5 min: Tactile Stimulation SCORE 5 MIN: 9 INFORMATION BABY A Gestational Age at Delivery: 40.3 Gestational Status: Full Term- 39- 40.6 Weeks Infant Outcome : Liveborn Condition : Stable Sex: Male IDENTIFICATION BABY A Verification Date/Time: 11/19/2017 06:35 ID Band Number: [id number] Mother's Name Verified: Yes RN Verifying : Javier Christensen, RN Additional Verifying Personnel: S Shelby, RN WEIGHT/LENGTH BABY A Infant Birthweight (gm): 3740 Infant Weight (lb): 8 Weight (oz): 4 Infant Length (in): 20.50 Length (cm): 52.07 CORD INFORMATION BABY A No. Cord Vessels: 3 Nuchal Cord : N/A Nuchal Cord- Other: Compound R Hand Cord Blood Taken: Yes-For Eval (Mom's Blood Type - or O+) Suction: Mouth; Nose ASSESSMENT BABY A Skin to Skin: No BABY B INFORMATION : N/A SIGNATURES Signature: with User ID: [email or web address]
[2017-11-19] MEDS: DILTIAZEM HCL 30 MG TABLET PO SCH ×2 (15:11→21:23)
[2017-11-19] MEDS: IBUPROFEN 800 MG TABLET PO SCH ×2 (15:12→21:23)
--- NOTE | 2017-11-19 17:15 | XCELERA REPORT ---
[address] [address] Transthoracic Echocardiogram Report Name: GREGORIO JORDAN Age: 27 yrs Gender: Female : 1990 Patient Status: Inpatient Patient Location: [address] [place] [address] Study Date: 11/19/2017 03:18 PM Height: 65 in Weight: 154 lb BSA: 1.8 m2 Procedure: A two-dimensional transthoracic echocardiogram with color flow and Doppler was performed. Study Quality: Good. Reason For Study: SVT / Murmur History: SVT / Murmur. Ordering Physician: CHERYL FLOOD Performed By: Lora Talley Interpretation Summary The left ventricle is normal in size. There is normal left ventricular wall thickness. LV EF is 65% Left ventricular systolic function is normal. Doppler measurements suggest normal left ventricular diastolic function The left ventricular wall motion is normal. There is no thrombus. There is no ventricular septal defect visualized. The right ventricle is normal in size and function. The right atrium is normal. The left atrial size is normal. The interatrial septum is intact with no evidence for an atrial septal defect. There is no evidence of mitral valve prolapse. There is no vegetation seen on the mitral valve. There is no mitral valve stenosis. There is a trace amount of mitral regurgitation There is no aortic valvular vegetation. There is no aortic valve stenosis There is no LVOT obstruction. No aortic regurgitation is present. There is no tricuspid stenosis. There is a mild amount of tricuspid regurgitation RVSPm is 31 mm of Hg , with RA mean of 5.No significant pulmonary hypertension.RVSP is just above the upper normal limits of 30 mm of Hg. There is no pulmonic valvular stenosis. There is a trace amount of pulmonic regurgitation The aortic root is normal size. There is no pericardial effusion. MMode/2D Measurements & Calculations RVDd: 2.9 cm LVIDd: 4.3 cm FS: 35.4 % Ao root diam: 2.5 cm IVSd: 0.84 cm LVIDs: 2.8 cm EDV(Teich): 82.4 ml LVPWd: 0.89 cmESV(Teich): 28.7 ml Ao root area: 5.0 cm2 EF(Teich): 65.1 % LA dimension: 3.2 cm LVOT diam: 1.9 cm LVOT area: 2.8 cm2 Doppler Measurements & Calculations MV E max monisha: MV P1/2t max monisha: Ao V2 max: LV V1 max P.7 cm/sec 99.2 cm/sec 159.9 cm/sec 5.4 mmHg MV A max monisha: MV P1/2t: 46.1 msec Ao max PG: LV V1 max: 63.2 cm/sec MVA(P1/2t): 4.8 cm2 10.2 mmHg 115.7 cm/sec MV E/A: 1.5 MV dec slope: PILAR(V,D): 2.0 cm2 630.8 cm/sec2 PA V2 max: PI end-d monisha: TR max monisha: 89.8 cm/sec 107.7 cm/sec 251.9 cm/sec PA max PG: TR max P.2 mmHg 25.4 mmHg Left Ventricle The left ventricle is normal in size. There is normal left ventricular wall thickness. LV EF is 65%. Left ventricular systolic function is normal. Doppler measurements suggest normal left ventricular diastolic function. The left ventricular wall motion is normal. There is no thrombus. There is no ventricular septal defect visualized. Right Ventricle The right ventricle is normal in size and function. Atria The right atrium is normal. The left atrial size is normal. The interatrial septum is intact with no evidence for an atrial septal defect. Mitral Valve There is no evidence of mitral valve prolapse. There is no vegetation seen on the mitral valve. There is no mitral valve stenosis. There is a trace amount of mitral regurgitation. Aortic Valve There is no aortic valvular vegetation. There is no aortic valve stenosis. There is no LVOT obstruction. No aortic regurgitation is present. Tricuspid Valve There is no tricuspid stenosis. There is a mild amount of tricuspid regurgitation. RVSPm is 31 mm of Hg , with RA mean of 5.No significant pulmonary hypertension.RVSP is just above the upper normal limits of 30 mm of Hg. Pulmonic Valve There is no pulmonic valvular stenosis. There is a trace amount of pulmonic regurgitation. Great Vessels The aortic root is normal size. Effusions There is no pericardial effusion. : CHERYL FLOOD > Cheryl Flood
--- NOTE | 2017-11-19 20:35 | EKG REPORT ---
SEVERITY:- NORMAL ECG - SINUS RHYTHM : Confirmed by: Blank Knight 19-Nov-2017 20:34:42
--- NOTE | 2017-11-19 22:24 | CONSULTATION REPORT E ---
Consultation Report NAME: GREGORIO JORDAN : 1990 AGE: 27Y DATE: 11/19/2017 ROOM: 425 A TO: KALPESH FLOOD M.D. FROM: Requesting Physician Note, I was with the patient from 12:45 a.m. to 1 a.m. Total of 45 minutes spent. HISTORY OF PRESENT ILLNESS: The patient is a 27-year-old female with full term who came into labor and delivery with complaints of syncope, labor pains, and contractions and also awareness of rapid beating of her heart. 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 The patient had a stable blood pressure. There was no effect with the Cardizem given intravenously. Subsequently the patient was given 6 mg of adenosine and the patient converted to sinus tachycardia. Her heart rate was in the 108 beats per minute and blood pressure 113/51. The patient still had not delivered and the patient was started on Pitocin drip to help her facilitate the labor/delivery quickly. My recommendation was to place the patient on Cardizem 2.5 mg per hour and watch her and once the patient delivers the baby then put her on Cardizem at 30 mg p.o. q.8 hours. The patient denies any chest pain or discomfort. She does have some shortness of breath due to the pain. There is no PND, orthopnea. The patient is able to lie down flat. There is no further syncope after I saw the patient. There is no seizure activity. PAST MEDICAL HISTORY: Negative for any palpitations or cardiac arrhythmia. There is no history of increased caffeine intake. There is no history of prior palpitations or syncope. There is no history of mitral valve prolapse. There is no history of coronary artery disease. There is no history of hypertension or diabetes mellitus or any other major medical illnesses. PAST SURGICAL HISTORY: Positive for D and C in 2013. FAMILY HISTORY: Positive for hypertension. Negative for any cardiac arrhythmia. ALLERGIES: BEE STINGS. MEDICATIONS: As per MAR; The patient did receive Pitocin and also pain medications. The patient is on a Cardizem drip, subsequently the Cardizem once the patient delivers will be changed to oral Cardizem at 30 mg p.o. q.8 hours. Later was for the patient to have an echocardiogram done once the patient's heart rate is below 100. SOCIAL HISTORY: The patient does not smoke. There is no history of EtOH abuse. There is no history of street drug abuse. There is no history of excessive caffeine intake. FAMILY HISTORY: Positive for hypertension. No history of arrhythmias in the family. REVIEW OF SYSTEMS: CONSTITUTIONAL: Denies any fever, chills, or rigors. Complains of generalized fatigue. HEAD: Denies headaches or head injury. EYES: No history of amblyopia or diplopia. No history of amaurosis fugax. EARS: No history of hearing loss. No history of tinnitus. No history of recurrent ear infections. NOSE: No history of hay fever. No history of nosebleeds. No history of nasal polyps. MOUTH: No history of altered taste sensation. No ulcers in the mouth. No bleeding from the gums. THROAT: No odynophagia or dysphagia. No history of recurrent sore throats. SKIN: No pruritus. No skin cancer. No history of psoriasis. NECK: No history of symptoms of c-spine arthritis. No history of swelling in the neck. No goiter. LUNGS: No history of asthma or COPD. No history of wheezing. No history of cough or sputum production. No history of pulmonary embolism. No history of hemoptysis. No history of pleuritic chest pain. No history of sleep apnea. No history of upper or lower respiratory tract infections. CARDIAC: No prior history of cardiac arrhythmia or palpitations. No prior history of syncope. No history of congenital heart disease. No history of mitral valve prolapse. No history for the patient's young to have coronary artery disease. No history of anginal symptoms. No history of congestive heart failure. No history of leg edema. No history of PND, orthopnea. This is the first time the patient has had an SVT. GASTROINTESTINAL: Occasional GERD symptoms due to her . No history of GI bleed. No history of fatty food intolerance. No history of cirrhosis of the liver. MUSCULOSKELETAL: Denies collagen vascular disease or arthritis. RENAL: No history of chronic kidney disease. No history of symptoms of urinary tract infection. No hematuria, pyuria, or dysuria. ENDOCRINE: No history of diabetes mellitus. No history of thyroid disease. No history of polydipsia or polyuria. No history of heat or cold intolerance. METABOLIC: No history of obesity. No history of hyperlipidemia. CENTRAL NERVOUS SYSTEM: No history of TIA or CVA. No history of headaches, migraines, or seizures. No history of gait imbalance. PSYCHIATRIC: No history of anxiety or depression. No history of suicidal or homicidal ideation. VASCULAR: No history of calf or buttock claudication. No history of DVT. HEMATOLOGICAL: No history of bleeding diathesis. No history of clotting disorders. DISPOSITION: The patient is a full code. Her is the surrogate healthcare decision maker. PHYSICAL EXAMINATION: VITAL SIGNS: On examination the patient is afebrile, after the adenosine the patient's heart rate came down to 103, blood pressure came down to 113/75, respirations 21 per minute, O2 saturations are 99% on room air. HEENT: Head is atraumatic, normocephalic. Eyes: Pupils are equal, round and regular, reactive to light and accommodation. Extraocular movements are normal. There is no conjunctival pallor. There is no scleral icterus. Ears: Tympanic membranes are intact, external auditory canals are clear. Nose: There is no deviated nasal septum, there is no inflammation of the nasal mucous membrane. Mouth: Mucous membranes of the are moist, tongue is moist. There are no ulcers. There is no bleeding from the gums. Throat: There is no redness of the oropharynx, there is no exudate. SKIN: There are no skin rashes. There is no petechiae, ecchymosis. There are no skin lesions. NECK: Supple. There is no JVD. There is no lymphadenopathy. There is no goiter. Carotids are equal. There is no bruit. Trachea is central. LUNGS: Clear to auscultation and percussion. There is no chest wall tenderness. HEART: S1 and S2 is heard. There is no S3 gallop. There is no S4 gallop. There is a systolic murmur in the left sternal border and the apex without any radiation. There is no rub. ABDOMEN: Soft, bowel sounds are well heard. There is no hepatosplenomegaly. There are no tender areas or masses. There is a gravid uterus. Note that the patient's fetus is being monitored and it has a good pulse and seems to be healthy and without compromise due to the mother's present condition. EXTREMITIES: Femorals are well felt. There are no femoral bruits. Leg pulses are well felt. There is no pedal edema. There is no cyanosis or clubbing. There is no DVT or cellulitis. There is no calf tenderness. CENTRAL NERVOUS SYSTEM: The patient is conscious, awake, alert and oriented x3, although slightly drowsy with no focal deficits. PSYCHIATRIC: The patient does not appear to be agitated or depressed. Judgment and insight seem to be intact in spite of her labor pains. DIAGNOSTIC STUDIES: The patient's EKG initially showed SVT and subsequently with adenosine converted to sinus tachycardia otherwise within normal limits. 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 The patient's white count is 15,200; hemoglobin is 10.3; hematocrit is 31.6; platelet count is 239,000. The patient's fibrinogen is 531 which is high. PTT is 29.9, INR is 0.96, ProTime is 13.6. The patient's sodium is 140.2, potassium 3.9, chloride 108, CO2 of 21. The patient's BUN is 7, creatinine 0.71, GFR is greater than 60. Glucose is 92, calcium is 9.0, magnesium is 1.6. Her troponin I is less than 0.012. The patient's urine opiate screen, urine methadone screen, urine barbiturate screen, urine phencyclidine screen, urine amphetamine screen, urine benzodiazepine screen, urine cocaine screen, and urine marijuana screen are all negative. The patient's RPR is nonreactive. The patient's urine shows a specific gravity of 1.010, urine protein is negative, urine glucose is negative, urine ketones is negative, urine blood is moderate, urine nitrite is negative, urine bilirubin is negative, urobilinogen is 4, urine leukocyte esterase is large, urine ascorbic acid is negative. IMPRESSION: 1. 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 We will start the patient on a Cardizem drip until the patient delivers and subsequently we will change it to p.o. Cardizem at 30 mg p.o. q.8 hours. In view of the drug crossing the barrier and concentrating the patient's breast milk. The patient has been cautioned not to breastfeed her . Later would recommend getting an echocardiogram and also as an outpatient would get a 30 day event monitor. 2. . The patient at the point of delivering. The patient is in labor. 3. Systolic murmur without radiation but we will get an echocardiogram. RECOMMENDATIONS: Stands as above. ADDENDUM: The patient did have an echocardiogram which was within normal limits with trace mitral regurgitation and mild tricuspid regurgitation with normal right ventricular systolic pressures, no pericardial effusion, no chamber enlargements, and normal left ventricular systolic function and with no wall motion abnormality, no evidence of mitral valve prolapse or any other congenital heart disease. This will be discussed with the patient. Since I went to the patient's room, she was not there. TIME SPENT: Note 45 minutes spent on this patient with more than 50% of the time spent on direct patient care, her medications have been reviewed, and medications adjusted as mentioned earlier. Discussed with the hospitalist, Dr. Shaffer and with Dr. Monroy the OBGYN, and formulated a care of plan for the patient. Note medical decision making is of high complexity. In view of the patient being in labor and having a high heart rate. Note, thankfully the patient's blood pressure was stable and we were able to convert the patient to regular rhythm. As mentioned earlier as an outpatient we will get a 30 day event monitor. DICTATING PHYSICIAN: KALPESH FLOOD M.D. [id number] PHY#: [id number] ID: [id number] JOB#: [id number] ACCT: [id number] cc:KALPESH FLOOD M.D. >
[2017-11-20 05:12] LABS: HEMATOCRIT 30.5 % (36.0-47.0); MEAN CORPUSCULAR HEMOGLOBIN 25.2 pg (27.0-33.4); MEAN CORPUSCULAR HGB CONC 32.7 g/dL (32.0-36.0); MEAN CORPUSCULAR VOLUME 77 fl (80-97); PLATELET COUNT 223 10^3/uL (150-450); RED BLOOD COUNT 3.95 10^6/uL (3.72-5.28); RED CELL DISTRIBUTION WIDTH 16.3 % (11.5-14.0); WHITE BLOOD COUNT 14.4 10^3/uL (4.0-10.5)
[2017-11-20 05:54] LABS: BLOOD UREA NITROGEN 7 mg/dL (7-20); CALCIUM 8.5 mg/dL (8.4-10.2); CHLORIDE 110 mmol/L (98-107); GLUCOSE 70 mg/dL (75-110)
[2017-11-20] MEDS: DILTIAZEM HCL 30 MG TABLET PO SCH (05:54)
[2017-11-20] MEDS: IBUPROFEN 800 MG TABLET PO SCH ×3 (05:54→21:59)
[2017-11-20 06:06] LABS: CARBON DIOXIDE 23 mmol/L (22-30); SODIUM 135.2 mmol/L (137-145)
[2017-11-20 06:13] LABS: ANION GAP 2 (5-19)
[2017-11-20] MEDS: ACETAMINOPHEN WITH CODEINE #3 TABLET PO PRN ×2 (07:23→14:51)
--- NOTE | 2017-11-20 09:04 | PDOC PROGRESS REPORT ---
Subjective Progress Note for:: 11/20/17 Subjective:: pt denies any problems Reason For Visit: Physical Exam - Physical Exam Vital Signs: Temp Pulse Resp BP Pulse Ox 97.7 F 90 16 101/58 L 95 11/20/17 03:20 11/20/17 07:00 11/20/17 03:20 11/20/17 03:20 11/20/17 03:20 Intake & Output 11/19/17 11/20/17 11/21/17 06:59 06:59 06:59 Intake Total 353 Balance 353 Weight 73 kg 70.1 kg - Obstetrical Exam Fundal Height: u/3 - u/4 Tender: No Result Laboratory Results: 11/20/17 04:47 11/20/17 04:47 11/19/17 11/20/17 11/20/17 08:36 04:47 04:47 WBC 14.4 H RBC 3.95 Hgb 10.0 L Hct 30.5 L MCV 77 L MCH 25.2 L MCHC 32.7 RDW 16.3 H Plt Count 223 Sodium 136.8 L 135.2 L Potassium 3.8 4.0 Chloride 108 H 110 H Carbon Dioxide 19 L 23 Anion Gap 10 2 L BUN 8 7 Creatinine 0.54 0.48 L Est GFR ( Amer) > 60 > 60 Est GFR (Non-Af Amer) > 60 > 60 Glucose 95 70 L Calcium 8.7 8.5 Magnesium 1.6 11/19/17 00:14 Troponin I < 0.012 Assessment & Plan - Diagnosis (1) AVNRT (AV nando re-entry tachycardia) Is this a current diagnosis for this admission?: Yes - Plan Summary Plan Summary: routine post care and follow plan of management of cardiology/hospitalist
[2017-11-20] MEDS: PRENATAL VITAMIN W DHA CAPSULE PO SCH (09:51)
[2017-11-20] MEDS: FERROUS SULFATE 325 MG TABLET PO SCH ×2 (09:51→18:25)
[2017-11-20] MEDS: SENNOSIDES/DOCUSATE 8.6-50 MG 1 EACH TABLET PO SCH (09:51)
[2017-11-20] MEDS: DOCUSATE SODIUM 100 MG CAPSULE PO SCH ×2 (09:51→18:25)
--- NOTE | 2017-11-20 10:05 | PDOC PROGRESS REPORT ---
Subjective Progress Note for:: 11/20/17 Subjective:: Patient is feeling well no tachycardia no chest pains no fever or chills Reason For Visit: PSVT Physical Exam Vital Signs: Temp Pulse Resp BP Pulse Ox 97.7 F 90 16 101/58 L 95 11/20/17 03:20 11/20/17 07:00 11/20/17 03:20 11/20/17 03:20 11/20/17 03:20 Intake & Output 11/19/17 11/20/17 11/21/17 00:59 00:59 00:59 Intake Total 3 350 Balance 3 350 Weight 73 kg 70.1 kg General appearance: PRESENT: no acute distress, well-developed, well-nourished Head exam: PRESENT: atraumatic, normocephalic Eye exam: PRESENT: conjunctiva pink, EOMI, PERRLA. ABSENT: scleral icterus Ear exam: PRESENT: normal external ear exam Mouth exam: PRESENT: moist, tongue midline Neck exam: ABSENT: carotid bruit, JVD, lymphadenopathy, thyromegaly Respiratory exam: PRESENT: clear to auscultation alex. ABSENT: rales, rhonchi, wheezes Cardiovascular exam: PRESENT: RRR. ABSENT: diastolic murmur, rubs, systolic murmur Pulses: PRESENT: normal dorsalis pedis pul Vascular exam: PRESENT: normal capillary refill GI/Abdominal exam: PRESENT: normal bowel sounds, soft. ABSENT: distended, guarding, mass, organolmegaly, rebound, tenderness Rectal exam: PRESENT: deferred Extremities exam: PRESENT: full ROM. ABSENT: calf tenderness, clubbing, pedal edema Neurological exam: PRESENT: alert, awake, oriented to person, oriented to place , oriented to time, oriented to situation, CN II-XII grossly intact. ABSENT: motor sensory deficit Psychiatric exam: PRESENT: appropriate affect, normal mood. ABSENT: homicidal ideation, suicidal ideation Skin exam: PRESENT: dry, intact, warm. ABSENT: cyanosis, rash Results Laboratory Results: 11/20/17 04:47 11/20/17 04:47 11/20/17 11/20/17 04:47 04:47 WBC 14.4 H RBC 3.95 Hgb 10.0 L Hct 30.5 L MCV 77 L MCH 25.2 L MCHC 32.7 RDW 16.3 H Plt Count 223 Sodium 135.2 L Potassium 4.0 Chloride 110 H Carbon Dioxide 23 Anion Gap 2 L BUN 7 Creatinine 0.48 L Est GFR ( Amer) > 60 Est GFR (Non-Af Amer) > 60 Glucose 70 L Calcium 8.5 11/19/17 00:14 Troponin I < 0.012 Assessment & Plan - Diagnosis (1) AVNRT (AV nando re-entry tachycardia) Is this a current diagnosis for this admission?: Yes Plan: discussed case with Dr Esposito Cardiology no reccurent tachyarrhythmia Repeat EKG Hold Cardizem monitor patient for 12- 24 hours (2) (normal spontaneous vaginal delivery) Is this a current diagnosis for this admission?: Yes - Time Time Spent with patient: 25-34 minutes - Plan Summary Plan Summary: patient to hold for 48hours after discontinuation of cardizem
[2017-11-20] MEDS: POLYETHYLENE GLYCOL 3350 POWDER 17 GM/1 PACKET PO SCH (14:40)
--- NOTE | 2017-11-20 21:44 | PROGRESS NOTE E ---
Progress Note NAME: GREGORIO JORDAN : 1990 AGE: 27Y DATE: 11/20/2017 ROOM: 425 SUBJECTIVE: Note that the patient has not had any recurrence of SVT. Her heart rate is well-controlled. She does not want to take Cardizem since she wants to breastfeed her child. The patient has no prior history of SVT. This could all be due to the strain of labor and pain causing the patient to go into SVT. She denies any chest pain or discomfort. There is no PND, orthopnea, or leg edema. There is no dizziness, near syncope, or syncope. OBJECTIVE: GENERAL: On examination the patient is well-built and well-nourished in no acute distress. VITAL SIGNS: She is afebrile with a temperature of 97.3 degrees Fahrenheit, pulse is 80 beats per minute, blood pressure 108/74, respirations are 20 per minute, O2 saturations are 100% on room air. HEENT: Head is atraumatic, normocephalic. Eyes: Pupils are equal, round and regular, reactive to light and accommodation. Extraocular movements are normal. There is no conjunctival pallor. There is no scleral icterus. Ears: Tympanic membranes are intact, external auditory canals are clear. Nose: There is no deviated nasal septum, there is inflammation of the nasal mucous membrane. Mouth: Mucous membranes of the mouth are moist, tongue is moist. There are no ulcers, there is no bleeding from the gums. Throat: There is no redness of the oropharynx, there are no exudates. SKIN: There are no skin rashes. There is no skin lesions. There is no petechiae or ecchymosis. NECK: Supple. There is no JVD. There is no lymphadenopathy. There is no goiter. Carotids are equal. There is no bruit. Trachea is central. LUNGS: Clear to auscultation and percussion without any rhonchi, rales, or wheezing. There is no chest wall tenderness. HEART: S1 and S2 is heard. There is no S3 gallop. There is no S4 gallop. There is a systolic murmur in the left sternal border and the apex without any radiation. There is no rub. ABDOMEN: Soft, nontender. There is no hepatosplenomegaly. Bowel sounds are well heard. EXTREMITIES: Femorals are well felt. Leg pulses are well felt. There is no pedal edema. There is no cyanosis or clubbing. There is no DVT or cellulitis. CENTRAL NERVOUS SYSTEM: The patient is conscious, awake, alert and oriented x3 with no focal deficits. PSYCHIATRIC: The patient's judgment and insight are intact. Her affect is normal. LABORATORY DATA: The patient's white count is 14,400; hemoglobin is 10; hematocrit is 30.5; and her platelet count is 223,000. The patient's sodium is 135.2, potassium is 4.0, chloride is 110, CO2 is 23. The patient's BUN is 7, creatinine 0.48, GFR is greater than 60, glucose is 70, calcium is 8.5. IMPRESSION: 1. SVT. RESOLVED WITH ADENOSINE WITH NO RECURRENCE. 2. FULL-TERM . THE PATIENT DELIVERED A HEALTHY MALE INFANT WITH NO COMPLICATIONS. 3. "FLOW *------* MURMUR." RECOMMENDATION: We will stop the patient's Cardizem and we will get an outpatient 30 day event monitor. Note that the patient's echocardiogram is within normal limits with physiological trace MR and TR with no pulmonary hypertension. This has been discussed with the patient. We will follow the patient as outpatient. We will have the company sent the patient a 30 day event monitor. The patient has been given my cell phone number and my office number and the patient to contact me via my cell phone if she has any recurrence of palpitations or tachycardia. Discussed with the hospitalist taking care of the patient. TIME SPENT: Note 30 minutes spent on this patient with more than 50% of the time spent on direct patient care and also educating the patient if there should be recurrence of SVT to try vagal maneuver such as Valsalva maneuver and carotid sinus massage, 1 side at a time, not more than 30 seconds and splashing cold ice water on the face. And, also we will have the patient carry a supply of Cardizem to take p.r.n. if there should be recurrence of SVT. We will follow the patient in the outpatient. Medical decision making is of moderate complexity. We will sign off the case. We will discuss with OBGYN. I have discussed with the hospitalist on the case. The patient will be kept overnight in observation of her heart rhythm and will be discharged tomorrow morning. DICTATING PHYSICIAN: KALPESH FLOOD M.D. [id number] PHY#: [id number] ID: [id number] JOB#: [id number] ACCT: [id number] cc: >
--- NOTE | 2017-11-20 23:27 | EKG REPORT ---
SEVERITY:- BORDERLINE ECG - SINUS RHYTHM BORDERLINE T ABNORMALITIES, DIFFUSE LEADS : Confirmed by: Blank Knight 20-Nov-2017 23:25:59
[2017-11-21] MEDS: IBUPROFEN 800 MG TABLET PO SCH (06:03)
[2017-11-21] MEDS: FERROUS SULFATE 325 MG TABLET PO SCH (09:45)
[2017-11-21] MEDS: DOCUSATE SODIUM 100 MG CAPSULE PO SCH (09:45)
[2017-11-21] MEDS: POLYETHYLENE GLYCOL 3350 POWDER 17 GM/1 PACKET PO SCH (09:45)
[2017-11-21] MEDS: PRENATAL VITAMIN W DHA CAPSULE PO SCH (09:45)
[2017-11-21] MEDS: SENNOSIDES/DOCUSATE 8.6-50 MG 1 EACH TABLET PO SCH (09:45)
--- NOTE | 2017-11-21 09:53 | PDOC DISCHARGE SUMMARY ---
General - Admit/Disc Date/PCP Admission Date/Primary Care Provider: 11/18/17 23:52 QIANA PECK MD Discharge Date: 11/21/17 - Discharge Diagnosis (1) AVNRT (AV nando re-entry tachycardia) Is this a current diagnosis for this admission?: Yes (2) Encounter for induction of labor Is this a current diagnosis for this admission?: Yes (3) Is this a current diagnosis for this admission?: Yes - Additional Information Resuscitation Status: Full Code Home Medications: Vit/Iron Fum/Folic AC [ Tablet] 1 tab PO DAILY 09/02/17 History of Present Illness History of Present Illness: GREGORIO JORDAN is a 27 year old female Hospital Course Hospital Course: She was admitted and delivered vaginally. She has svt which was treated by cardiology. She may be sent home without meds as the situation has resolved. Physical Exam - Physical Exam Vital Signs: Temp Pulse Resp BP Pulse Ox 98.3 F 79 16 112/71 98 11/20/17 23:10 11/21/17 07:00 11/20/17 23:10 11/20/17 23:10 11/20/17 23:10 Intake & Output 11/20/17 11/21/17 11/22/17 06:59 06:59 06:59 Intake Total 353 420 Balance 353 420 Weight 70.1 kg General appearance: PRESENT: no acute distress, well-developed, well-nourished Head exam: PRESENT: atraumatic, normocephalic Result Laboratory Results: 11/20/17 04:47 11/20/17 04:47 11/19/17 00:14 Troponin I < 0.012 Plan Discharge Plan: Home to rest. She plans to breast feed. FU in office in 4 wks Time Spent: Greater than 30 Minutes
[2017-11-21 11:42] VITALS: BP 108/74
--- NOTE | 2017-11-21 16:40 | Progress Note ---
Provider Note Provider Note: 11/21/2017 . Patient was observed 24 hours after Cardizem was discontinued She did not have any arrhythmia She will be discharged today and will follow-up as an outpatient with Dr. Esposito
== END 2017-11-21 12:02 | disposition home or self-care (01) | DRG 774 ==
LOC: LC 22:52 → LR 23:52 → ICU 11-19 08:18 → 4S 11-19 15:45
PROVIDERS: ADMIT Obstetrics & Gynecology; ATTEND Obstetrics & Gynecology
PROC: 10E0XZZ Delivery of Products of Conception, External Approach (ICD-10-PCS; principal; 2017-11-19)
PROC: 10907ZC Drainage of Amniotic Fluid, Therapeutic from Products of Conception, Via Natural or Artificial Opening (ICD-10-PCS; 2017-11-19)
PROC: 4A1HXCZ Monitoring of Products of Conception, Cardiac Rate, External Approach (ICD-10-PCS; 2017-11-19)
DX: O99.42 Diseases of the circulatory system complicating childbirth (principal); I47.1 Supraventricular tachycardia; E87.1 Hypo-osmolality and hyponatremia; O99.284 Endocrine, nutritional and metabolic diseases complicating childbirth; O32.6XX0 Maternal care for compound presentation, not applicable or unspecified; Z3A.40 40 weeks gestation of pregnancy; Z37.0 Single live birth; Z87.891 Personal history of nicotine dependence; O99.62 Diseases of the digestive system complicating childbirth; K21.9 Gastro-esophageal reflux disease without esophagitis; Z91.030 Bee allergy status; R01.1 Cardiac murmur, unspecified; Z82.49 Family history of ischemic heart disease and other diseases of the circulatory system
CPT/HCPCS: 36415; 80048; 80307; 81005; 83735; 84484; 85025; 85027; 85384; 85610; 85730; 86592; 86850; 86900; 86901; 87086; 87088; 87186; 93005; 93010; 93306; J0153; J2300; J2550; J2590; J3475; J3490

== ENCOUNTER 2017-12-05 07:46 | Emergency (ER) | payer MEDICAID ==
[2017-12-05 08:02] VITALS: BP 106/72
[2017-12-05] MEDS ORDERED: DEXAMETHASONE SOD PHOS INJ 10 MG/1 ML VIAL IM ONE (08:42)
[2017-12-05] MEDS ORDERED: PENICILLIN G BENZATHINE 1.2 MILLION UNIT/2 ML DISP.SYRIN IM ONE (08:42)
--- NOTE | 2017-12-05 08:42 | ER Document Report ---
ED ENT - General Chief Complaint: Sore Throat Stated Complaint: SORE THROAT Time Seen by Provider: 12/05/17 08:29 Notes: This is a pleasant 27-year-old female patient to the emergency department complaining of sore throat for 2 days, intermittent fevers, hurts to swallow with no other major symptoms. Patient is 2 weeks from a uncomplicated vaginal delivery. Not breast-feeding at this time. Denies any rash. No abdominal pain. TRAVEL OUTSIDE OF THE [place] IN LAST 30 DAYS: No - HPI Onset: Yesterday Onset/Duration: Worse Quality of pain: Dull Severity: Moderate Pain Level: 3 Location of pain: Throat Associated symptoms: Sore throat, Swollen glands. denies: Drooling Similar symptoms previously: Yes - Related Data Allergies/Adverse Reactions: bee stings Allergy (Severe, Uncoded 10/27/17 05:37) Past Medical History - General Information source: Patient - Social History Smoking Status: Never Smoker Cigarette use (# per day): No Frequency of alcohol use: None Drug Abuse: None Lives with: Spouse/Significant other Family History: Reviewed & Not Pertinent, Hypertension - Past Medical History Cardiac Medical History: Reports: None Pulmonary Medical History: Reports: None EENT Medical History: Reports: None Neurological Medical History: Reports: None Renal/ Medical History: Denies: Hx Peritoneal Dialysis - Immunizations Hx Diphtheria, Pertussis, Tetanus Vaccination: No Review of Systems - Review of Systems Constitutional: Chills, Fever. denies: Diaphoresis EENT: Throat pain, Throat swelling. denies: Double vision, Ear pain Cardiovascular: denies: Chest pain, Palpitations, Heart racing, Dyspnea, Syncope , Dizziness Respiratory: denies: Cough, Hurts to breathe, Short of breath, Wheezing Gastrointestinal: denies: Abdominal pain, Diarrhea, Nausea, Vomiting Genitourinary: denies: Burning, Dysuria, Discharge Musculoskeletal: denies: Back pain, Joint pain, Muscle pain Skin: denies: Change in color, Lesions, Rash Physical Exam - Vital signs Vitals: Temp Resp BP Pulse Ox 98.6 F 20 106/72 99 12/05/17 08:00 12/05/17 08:00 12/05/17 08:00 12/05/17 08:00 Interpretation: Tachycardic - General General appearance: Appears well, Alert - HEENT Head: Normocephalic, Atraumatic Eyes: Normal Pupils: PERRL Tympanic membrane: Normal Nasal: Normal Pharynx: Erythema, Exudate. No: Uvular edema, Potential airway comprom. Neck: Lymphadenopathy - Respiratory Respiratory status: No respiratory distress Chest status: Nontender Breath sounds: Normal Chest palpation: Normal - Cardiovascular Rhythm: Tachycardia Heart sounds: Normal auscultation Murmur: No - Abdominal Inspection: Normal Distension: No distension Bowel sounds: Normal Tenderness: Nontender Organomegaly: No organomegaly - Back Back: Normal, Nontender - Extremities General upper extremity: Normal inspection, Nontender, Normal color, Normal ROM , Normal temperature General lower extremity: Normal inspection, Nontender, Normal color, Normal ROM , Normal temperature, Normal weight bearing. No: Fermin's sign - Neurological Neuro grossly intact: Yes Cognition: Normal Orientation: AAOx4 Sensory: Normal - Skin Skin Temperature: Warm Skin Moisture: Dry Skin Color: Normal Course - Re-evaluation Re-evalutation: 12/05/17 08:50 Based on the fact the patient meets the criteria will begin treatment at this time with penicillin. Will give her some Decadron as well. Will prescribe antibiotics as outpatient. Did not feel compelled to do any further testing at this time. - Vital Signs Vital signs: Temp Pulse Resp BP Pulse Ox 98.6 F 101 H 20 106/72 99 12/05/17 08:00 12/05/17 08:02 12/05/17 08:00 12/05/17 08:00 12/05/17 08:00 Discharge - Discharge Clinical Impression: Pharyngitis due to group A beta hemolytic Streptococci Disposition: HOME, SELF-CARE Instructions: Strep Throat ([facility]), Sore Throat ([facility]) Prescriptions: Cefdinir [Omnicef 300 mg Capsule] 1 cap PO BID 7 Days #14 capsule
[2017-12-05] MEDS ORDERED: ACETAMINOPHEN 325 MG TABLET PO ONE (09:22)
== END 2017-12-05 09:32 | disposition home or self-care (01) ==
LOC: ER 07:46
DX: J02.0 Streptococcal pharyngitis (principal); Z91.030 Bee allergy status
CPT/HCPCS: 99282; 96372; J3490; J0561; J1100

== ENCOUNTER 2019-08-14 11:46 | Emergency (ER) | payer MEDICAID, OTHER ==
--- NOTE | 2019-08-14 11:58 | ER Document Report ---
ED Medical Screen (RME) - General Chief Complaint: Flu Symptoms Stated Complaint: SORE THROAT Time Seen by Provider: 08/14/19 11:56 TRAVEL OUTSIDE OF THE [place] IN LAST 30 DAYS: No - HPI Notes: 08/14/19 11:58 Patient is a 29-year-old female no significant past medical history presents complaining nasal congestion/discharge, dry cough, sore throat that began yesterday. I have treated and performed a rapid initial assessment of this patient. A comprehensive ED assessment and evaluation of the patient, analysis of test results and completion of medical decision making process will be conducted by additional ED providers. PHYSICAL EXAMINATION: GENERAL: Well-appearing, well-nourished and in no acute distress. Lungs: CTAB - Related Data Allergies/Adverse Reactions: bee stings Allergy (Severe, Uncoded 08/14/19 11:56) Past Medical History Renal/ Medical History: Denies: Hx Peritoneal Dialysis Past Surgical History: Reports: Hx Gynecologic Surgery - d/c - Immunizations Hx Diphtheria, Pertussis, Tetanus Vaccination: No Physical Exam - Vital signs Vitals: Temp Pulse Resp BP Pulse Ox 98.6 F 78 18 122/74 100 08/14/19 11:49 08/14/19 11:49 08/14/19 11:49 08/14/19 11:49 08/14/19 11:49 Course - Vital Signs Vital signs: Temp Pulse Resp BP Pulse Ox 98.6 F 78 18 122/74 100 08/14/19 11:49 08/14/19 11:49 08/14/19 11:49 08/14/19 11:49 08/14/19 11:49
[2019-08-14 12:59] LABS: A TYPE INFLUENZA AG NEGATIVE (NEGATIVE); B INFLUENZA AG NEGATIVE (NEGATIVE)
--- NOTE | 2019-08-14 13:50 | ER Document Report ---
HPI - HPI Time Seen by Provider: 08/14/19 11:56 Pain Level: 3 Context: Patient is a 29-year-old female who presents the emergency department with rhinorrhea, cough, and a sore throat that started yesterday. She states that she is felt feverish. She has not taken her temperature. Patient's has the same symptoms. Denies any past medical history. Does not take any medications. Temp take ibuprofen last night and helped a little. Patient is an occasional smoker. - CONSTITUTIONAL Constitutional: REPORTS: Fever, Chills - EENT EENT: REPORTS: Sore Throat, Nasal Drainage-Clear, Nasal Drainage-Purulent, Congestion. DENIES: Ear Pain, Eye problems - NEURO Neurology: REPORTS: Headache. DENIES: Weakness, Vision blurred, Dizzinesss / Vertigo - CARDIOVASCULAR Cardiovascular: DENIES: Chest pain - RESPIRATORY Respiratory: REPORTS: Coughing. DENIES: Trouble Breathing - GASTROINTESTINAL Gastrointestinal: DENIES: Abdominal Pain, Nausea, Patient vomiting, Diarrhea - REPRODUCTIVE Reproductive: DENIES: : - DERM Skin Color: Normal Skin Problems: None Past Medical History - Social History Smoking Status: Current Some Day Smoker Chew tobacco use (# tins/day): No Frequency of alcohol use: None Drug Abuse: None Family History: Reviewed & Not Pertinent, Hypertension Patient has suicidal ideation: No Patient has homicidal ideation: No Renal/ Medical History: Denies: Hx Peritoneal Dialysis Past Surgical History: Reports: Hx Gynecologic Surgery - d/c - Immunizations Hx Diphtheria, Pertussis, Tetanus Vaccination: No Vertical Provider Document - CONSTITUTIONAL Agree With Documented VS: Yes Exam Limitations: No Limitations General Appearance: No Apparent Distress - INFECTION CONTROL TRAVEL OUTSIDE OF THE [place] IN LAST 30 DAYS: No - HEENT HEENT: Atraumatic, Normocephalic, PERRLA - NECK Neck: Normal Inspection, Supple. negative: Lymphadenopathy-Left, Lymphadenopathy-Right - RESPIRATORY Respiratory: Breath Sounds Normal, No Respiratory Distress - CARDIOVASCULAR Cardiovascular: Regular Rate, Regular Rhythm Pulses: Normal: Radial - MUSCULOSKELETAL/EXTREMETIES Musculoskeletal/Extremeties: FROM - NEURO Level of Consciousness: Awake, Alert, Appropriate Motor/Sensory: No Motor Deficit, No Sensory Deficit - DERM Integumentary: Warm, Dry, No Rash Course - Re-evaluation Re-evalutation: 08/14/19 13:47 Presentation is most consistent with a viral upper respiratory infection. Patient is overall well appearance, vitals within normal limits, well-hydrated. Patient denies any headache, neck pain, and has no evidence of meningismus on examination. Lungs are clear bilaterally. No evidence of respiratory distress. Based on clinical exam and history, I do not suspect an acute pneumonia, meningitis, strep pharyngitis, or an acute encephalitis. No laboratory or imaging testing is indicated at this time. Will discharge patient with return precautions and followup recommendations. They are in agreement this plan have verbalized understanding return precautions. - Vital Signs Vital signs: Temp Pulse Resp BP Pulse Ox 98.6 F 78 18 122/74 100 08/14/19 11:49 08/14/19 11:49 08/14/19 11:49 08/14/19 11:49 08/14/19 11:49 Discharge - Discharge Clinical Impression: Upper respiratory infection, viral Condition: Stable Disposition: HOME, SELF-CARE Instructions: Upper Respiratory Illness ([facility]) Additional Instructions: You were seen today in the emergency department for a cough, runny nose. Your symptoms are most consistent with an upper respiratory viral infection. Please take acetaminophen 1000 mg and ibuprofen 600 mg every 6 hours as needed for any body aches or fever. You have been given cetirizine, medication to help with your runny nose. Take 1 tablet every day while you have symptoms. You have also been given Flonase, medication to help with the inflammation in your nose. Place 1 spray to each nostril twice a day. If you develop a fever greater than 100.4 F while on ibuprofen and acetaminophen, develop shortness of breath, difficulty breathing, or any symptoms that are worrisome to you, please return to the emergency department. Prescriptions: Cetirizine HCl [All Day Allergy] 10 mg PO DAILY #30 tablet Fluticasone Propionate [Flonase Nasal Altus 50 Mcg/Altus 16 gm] 2 sprays NASL DAILY #1 inhaler Forms: Return to Work, Smoking Cessation Education
[2019-08-14 13:55] VITALS: BP 108/65
== END 2019-08-14 13:56 | disposition home or self-care (01) ==
LOC: ER 11:46
DX: J06.9 Acute upper respiratory infection, unspecified (principal); J34.89 Other specified disorders of nose and nasal sinuses; R50.9 Fever, unspecified; F17.200 Nicotine dependence, unspecified, uncomplicated
CPT/HCPCS: 87070; 87077; 87804; 87880; 99283

== ENCOUNTER 2019-10-28 15:51 | Emergency (ER) | payer OTHER ==
[2019-10-28 15:56] VITALS: BP 130/82
[2019-10-28] MEDS ORDERED: HYDROCODONE/ACETAMINOPHEN 5-325 MG (6 TAB/ER DISP) PO PRN (16:23)
--- NOTE | 2019-10-28 16:25 | ER Document Report ---
HPI - HPI Time Seen by Provider: 10/28/19 16:13 Context: Patient is a 29-year-old female who presents emergency department with tooth socket pain. She had her 4 wisdom teeth extracted 6 days ago. She states that she was placed on antibiotics and she just ran out of her pain medication, which was ibuprofen. - CONSTITUTIONAL Constitutional: DENIES: Fever, Chills - EENT EENT: DENIES: Sore Throat, Ear Pain, Nasal Drainage-Clear, Nasal Drainage- Purulent, Congestion, Eye problems Notes: Tooth socket pain - CARDIOVASCULAR Cardiovascular: DENIES: Chest pain - RESPIRATORY Respiratory: DENIES: Coughing - GASTROINTESTINAL Gastrointestinal: DENIES: Abdominal Pain, Nausea, Patient vomiting, Diarrhea - REPRODUCTIVE Reproductive: DENIES: : - MUSCULOSKELETAL Musculoskeletal: DENIES: Extremity pain - DERM Skin Color: Normal Skin Problems: None Past Medical History - Social History Smoking Status: Never Smoker Family History: Reviewed & Not Pertinent, Hypertension Renal/ Medical History: Denies: Hx Peritoneal Dialysis Past Surgical History: Reports: Hx Gynecologic Surgery - d/c - Immunizations Hx Diphtheria, Pertussis, Tetanus Vaccination: No Vertical Provider Document - CONSTITUTIONAL Agree With Documented VS: Yes Exam Limitations: No Limitations General Appearance: No Apparent Distress - INFECTION CONTROL TRAVEL OUTSIDE OF THE [place] IN LAST 30 DAYS: No - HEENT HEENT: Atraumatic, Normocephalic, PERRLA Notes: Missing wisdom teeth. No edema noted. - NECK Neck: Normal Inspection - RESPIRATORY Respiratory: Breath Sounds Normal, No Respiratory Distress - CARDIOVASCULAR Cardiovascular: Regular Rate, Regular Rhythm - MUSCULOSKELETAL/EXTREMETIES Musculoskeletal/Extremeties: FROM - NEURO Level of Consciousness: Awake, Alert, Appropriate Motor/Sensory: No Motor Deficit, No Sensory Deficit - DERM Integumentary: Warm, Dry, No Rash Course - Re-evaluation Re-evalutation: 10/28/19 Patient's tooth sockets are healing appropriately. No purulent drainage noted. I have a very low suspicion for any life-threatening etiology at this time. Uvula is midline. Advised the patient that she needs to follow-up with the oral surgeon if she continues to have problems. Advised her to take ibuprofen and Tylenol for pain relief. Will give [place] for nighttime for extreme pain. She is in agreement with this plan. Follow-up precautions were given. Verbal discharge instructions were given to the patient. They verbalized understanding. They are stable for discharge. - Vital Signs Vital signs: Temp Pulse Resp BP Pulse Ox 98.7 F 82 20 130/82 H 99 10/28/19 15:54 10/28/19 15:54 10/28/19 15:54 10/28/19 15:54 10/28/19 15:54 Discharge - Discharge Clinical Impression: Postoperative pain, Pain of tooth socket Condition: Stable Disposition: HOME, SELF-CARE Additional Instructions: You have been seen in the emergency department for postsurgical pain. You may take ibuprofen 600 mg and Tylenol 1000 mg every 6 hours as needed for the pain. You are also being sent home with Natural Bridge, medication to help with pain. Please only take this before bed. If you take this at night, please only take 650 mg of Tylenol. Please allow 1 more week for your recovery. Recovery usually last 2 weeks. If you continue to have pain in the next week, please follow-up with the dental surgeon. If you continue if you develop a fever greater than 100.4 F, or have any symptoms that are worrisome to you, please return to the emergency department. Please follow-up with a dentist this week in regards to your visit.
== END 2019-10-28 16:33 | disposition home or self-care (01) ==
LOC: ER 15:51
DX: G89.18 Other acute postprocedural pain (principal); K08.89 Other specified disorders of teeth and supporting structures; K08.409 Partial loss of teeth, unspecified cause, unspecified class
CPT/HCPCS: 99282